=== PATIENT | male | born 1965 | race Caucasian/White ===

== ENCOUNTER 2023-11-23 09:23 | Outpatient (OUT) | payer OTHER, SELFPAY ==
[2023-11-23 11:12] LABS: Alanine Aminotransferase 37 U/L (16-63); Albumin Globulin Ratio 1.3; Albumin Level 3.9 g/dL (3.4-5.0); Alkaline Phosphatase 38 U/L (46-116); Anion Gap 13.8; Aspartate Amino Transferase 43 U/L (15-37); BUN Creatinine Ratio 8.9; Bilirubin Total 0.4 mg/dL (0.2-1.0); Calcium 9.2 mg/dL (8.5-10.1); Carbon Dioxide 24.9 mmol/L (21.0-32.0); Chloride 98 mmol/L (98-107); Chol HDL Ratio 1.7; Cholesterol 162 mg/dL (<=200); Estimated GFR (African America >60 (>=60); Estimated GFR (Non-African Ame >60 (>=60); Glucose 78 mg/dL (74-106); HDL Cholesterol 94 mg/dL (40-60); Potassium 3.7 mmol/L (3.5-5.1); Sodium 133 mmol/L (136-145); Total Protein 6.9 g/dL (6.4-8.2); Triglycerides 50 mg/dL (<=150)
== END 2023-11-23 09:24 | disposition home or self-care (01) ==
LOC: LAB 09:28
PROVIDERS: PCP Family Medicine; Visit Provider Family Medicine
DX: E78.2 Mixed hyperlipidemia (principal); I12.9 Hypertensive chronic kidney disease with stage 1 through stage 4 chronic kidney disease, or unspecified chronic kidney disease; N18.2 Chronic kidney disease, stage 2 (mild)
CPT/HCPCS: 36415; 80053; 80061

== ENCOUNTER 2023-11-23 09:33 | Outpatient (OUT) | payer OTHER, SELFPAY ==
[2023-11-23 10:11] LABS: Erythrocyte Sedimentation Rate 3 mm/hr (<=20)
[2023-11-23 11:22] LABS: Thyroid Stimulating Hormone 1.387 uIU/mL (0.358-3.740)
[2023-11-23 12:13] LABS: Estimated Average Glucose 85 mg/dL; Glycohemoglobin A1C 4.6 % (4.5-6.2)
[2023-11-23 13:35] LABS: Creatine Kinase 432 U/L (39-308)
[2023-11-24 12:10] LABS: Antinuclear Antibodies, IFA Negative (.)
[2023-11-24 13:09] LABS: t-Transglutaminase (tTG) IgA <2 U/mL (0-3)
[2023-11-26 12:09] LABS: Vitamin B1 (Thiamine), Blood 127.7 nmol/L (66.5-200.0)
== END 2023-11-23 09:34 | disposition home or self-care (01) ==
LOC: LAB 09:35
PROVIDERS: PCP Family Medicine
DX: E78.2 Mixed hyperlipidemia (principal); I12.9 Hypertensive chronic kidney disease with stage 1 through stage 4 chronic kidney disease, or unspecified chronic kidney disease; N18.2 Chronic kidney disease, stage 2 (mild); G62.9 Polyneuropathy, unspecified; M79.642 Pain in left hand
CPT/HCPCS: 36415; 80053; 80061; 82175; 82300; 82550; 82607; 82746; 83036; 83655; 83825; 83921; 84425; 84443; 85652; 86038; 86364

== ENCOUNTER 2024-09-01 10:08 | Outpatient (OUT) | payer OTHER, SELFPAY ==
--- OUTSIDE RECORDS SUMMARY | 2024-08-16 15:55 | XMS_ITS ---
Author Name Auto Generated Organization OHIP Support Name Relationship Address Phone SANTOS, JUANA Next of Kin Unknown + SANTOS, JUANA Next of Kin Unknown + SANTOS, JUANA Next of Kin Unknown + SANTOS, BLANCHE Next of Kin Unknown [phone] SANTOS, BLANCHE Next of Kin Unknown [phone] SANTOS, BLANCHE Next of Kin Unknown [phone] SANTOS, BLANCHE Next of Kin Unknown [phone] SANTOS, BLANCHE Next of Kin Unknown [phone] SANTOS, BLANCHE Next of Kin Unknown [phone] SANTOS, LBANCHE Next of Kin Unknown [phone] SANTOS, BLANCHE Next of Kin Unknown [phone] SANTOS, JUANA Next of Kin Unknown + SANTOS, BLANCHE Next of Kin Unknown [phone] SANTOS, BLANCHE Next of Kin Unknown [phone] SANTOS, BLANCHE Next of Kin Unknown [phone] SANTOS, JUANA Next of Kin Unknown + SANTOS, BLANCHE Next of Kin Unknown [phone] SANTOS, JUANA Next of Kin Unknown + SANTOS, BLANCHE Next of Kin Unknown [phone] SANTOS, BLANCHE Next of Kin Unknown [phone] SANTOS, BLANCHE Next of Kin Unknown [phone] SANTOS, BLANCHE Next of Kin Unknown [phone] SANTOS, JUANA Next of Kin Unknown + SANTOS, BLANCHE Next of Kin Unknown [phone] SANTOS, JUANA Next of Kin Unknown + SANTOS, JUANA Next of Kin Unknown + SANTOS, BLANCHE Next of Kin Unknown [phone] SANTOS, JUANA Next of Kin Unknown + Care Team Providers Care Grocery Checker Name Role Phone MARYANN PANIAGUA Attending Unavailable JOSE, RASTAFARI Referring Unavailable WUESCHER, RASTAFARI Attending Unavailable WILSON, MANUEL Referring Unavailable WILSON, MANUEL Referring Unavailable MARIA EUGENIA DENISE Referring Unavailable KARRIE, YUE Attending Unavailable OVITT, MARYANN Attending Unavailable OVITT, MARYANN Attending Unavailable WILSON, MANUEL Attending Unavailable WILSON, MANUEL Admitting Unavailable WILSON, MANUEL Attending Unavailable KARRIE, YUE Admitting Unavailable KARRIE, YUE Attending Unavailable SANGEETAESDELMA, RASTAFARI Attending Unavailable JOSE, RASTAFARI Attending Unavailable MIR GARCIA Referring Unavailable SKIEMIR Attending Unavailable HEMEYER, MILADY Alba Attending Unavailable NIELSONYOGESH STOVER Attending Unavailable NIELSONYOGESH STOVER Referring Unavailable BÁRBARA BECKER Attending Unavailable KIAYER, MILADY Alba Attending Unavailable HEMEYER, MILADY Alba Attending Unavailable NIELSONYOGESH T Attending Unavailable NIELSONYOGESH Attending Unavailable NIELSONYOGESH T Referring Unavailable BLANCA, MILADY Alba Attending Unavailable PROBLEMS DATE TYPE CONDITION / CODE ATTENDING STATUS [facility] 06/21/2024 Admitting Diagnosis Post-op / 483() MARYANN PANIAGUA Active [facility] 06/12/2024 Admitting Diagnosis Follow-up / [id number]() MARYANN PANIAGUA Active [facility] 05/25/2024 Admitting Diagnosis Pre-op Exam / [id number]() MARYANN PANIAGUA Active [facility] 03/17/2024 Admitting Diagnosis Unspecified hemorrhoids / K64.9(ICD-10) YUE YOON Active [facility] 03/17/2024 Admitting Diagnosis Hemorrhoids / [id number]() YUE YOON Active [facility] 03/06/2024 Admitting Diagnosis Muscle weakness (generalized) / M62.81(ICD-10) NICOLE MUHAMMAD Active [facility] 03/06/2024 Admitting Diagnosis Neuralgia and neuritis, unspecified / M79.2(ICD-10) NICOLE MUHAMMAD Active [facility] 03/01/2024 Admitting Diagnosis Other general symptoms and signs / R68.89(ICD-10) MANUEL WILSON Active [facility] 03/01/2024 Admitting Diagnosis Muscle wasting and atrophy, not elsewhere classified, left hand / M62.542(ICD-10) MANUEL WILSON Active [facility] 03/01/2024 Admitting Diagnosis Weakness / R53.1(ICD-10) MANUEL WILSON Active [facility] 02/14/2024 Admitting Diagnosis Cervicalgia / M54.2(ICD-10) WILTON Active [facility] 11/22/2023 Admitting Diagnosis Polyneuropathy, unspecified / G62.9(ICD-10) JOSE RASTAFARI Active [facility] 11/22/2023 Admitting Diagnosis Pain in left hand / M79.642(ICD-10) NICOLE MUHAMMAD Active [facility] PROCEDURES No Procedure Records Found RESULTS 36 Observed: 06/30/2024 5:41 PM Status: COMPLETED Source: [facility] Hi. Just wanted to make sure you saw the path from his muscle biopsy. I am not sure where you want or need this to go from here. Please call him. Thank you. TELEPHONE Observed: 06/30/2024 12:00 AM Status: COMPLETED Source: [facility] [id number] Manuela Graham 08/1965 Date Provider Department Center 06/30/2024 MARYANN KUMAR [facility] None Family History Problem Relation Age of Onset Cancer Mother Heart disease Father Hypertension Father Cancer Mother's Brother Family Status - Relation Status Age at Mother Father Mother's Brother OFFICE VISIT Observed: 06/21/2024 3:15 PM Status: COMPLETED Source: [facility] [id number] Manuela Graham 08/1965 Date Provider Department Center 06/21/2024 MARYANN KUMAR [facility] SURG [place] Family History Problem Relation Age of Onset Cancer Mother Heart disease Father Hypertension Father Cancer Mother's Brother Family Status - Relation Status Age at Mother Father Mother's Brother Level of Service:74852 DC POSTOP FOLLOW UP VISIT RELATED TO ORIGINAL PX Reason for Visit and Comments: Post-op [483] PROGRESS Observed: 06/21/2024 3:15 PM Status: COMPLETED Source: [facility] NEUROSURGERY NOTE SUBJECTIVE: Chief complaint: Postoperative visit for left calf muscle biopsy on 05/30/[address] Wilson. History of present illness: States that the bloody drainage she was having from incision last visit has since resolved. Denies tenderness, fever, chills. Ecchymosis left foot has resolved. Review of systems: As in HPI. Past Medical History: Diagnosis Date Arthritis Atrophy of muscle CTS (carpal tunnel syndrome) Hemorrhoids Hyperlipidemia Hypertension Spontaneous pneumothorax Past Surgical History: Procedure Laterality Date CARPAL TUNNEL RELEASE Left COLONOSCOPY ELBOW SURGERY Left 11/12/2022 LUNG SURGERY 07/2021 MUSCLE BIOPSY 05/30/2024 Dr. Wilson, left calf. ROTATOR CUFF REPAIR Left VASECTOMY Social History Tobacco Use Smoking status: Former Current packs/day: 0.00 Average packs/day: 0.3 packs/day for 25.8 years (6.5 ttl pk-yrs) Types: Cigarettes Start date: 1981 Quit date: 09/21/2009 Years since quittin.7 Smokeless tobacco: Never Vaping Use Vaping status: Never Used Substance Use Topics Alcohol use: Yes Alcohol/week: 8.0 standard drinks of alcohol Types: 8 Cans of beer per week Drug use: Not Currently Types: Marijuana Family History Problem Relation Name Age of Onset Cancer Mother Aislinn Joseph Heart disease Father Bin Graham Hypertension Father Bin Graham Cancer Mother's Brother Angel Joseph OBJECTIVE: Medications: albuterol amLODIPine buPROPion XL losartan multivitamin sildenafil Current Outpatient Medications: albuterol 90 mcg/actuation inhaler, if needed., Disp: , Rfl: amLODIPine (Norvasc) 10 mg tablet, Take 10 mg by mouth in the morning., Disp: , Rfl: buPROPion XL (Wellbutrin XL) 150 mg 24 hr tablet, Take 150 mg by mouth in the morning. Do not crush, chew, or split., Disp: , Rfl: losartan (Cozaar) 100 mg tablet, Take 100 mg by mouth in the morning., Disp: , Rfl: multivitamin tablet, Take 1 tablet by mouth in the morning., Disp: , Rfl: sildenafil (Viagra) 100 mg tablet, Take 100 mg by mouth if needed., Disp: , Rfl: Allergies: Allergies Allergen Reactions Penicillins Hives FACIAL SWELLING WHEN A CHILD DANDY DODD STUNG BY A WASP AT THE SAME TIME Exam: Exam performed and reviewed, changes as below. Vitals reviewed: Temp: [36.7 ???C (98 ???F)] 36.7 ???C (98 ???F) Heart Rate: [82] 82 BP: (137)/(77) 137/77 No intake/output data recorded. No intake/output data recorded. Exam reviewed and updated. Constitutional: In no apparent distress. Chest: Chest expansion symmetrical. Respirations regular and nonlabored. Extremities without edema. Skin warm and dry without pallor. Left posterior calf wound well-approximated without erythema or active drainage. 1 remaining Steri-Strips removed. Moderate edema. Sensation: Intact to light touch L2-S1 dermatomes bilaterally. Musculoskeletal: Hip flexors 5/5 bilaterally. Knee flexors and extensors 5/5 bilaterally. Ankle dorsal flexors 5/5 bilaterally. Ankle plantar flexors 5/5 bilaterally. Muscle tone without hyper or hypotonicity. Ambulatory without a device with steady gait. Labs: Admission on 05/30/2024, Discharged on 05/30/2024 Component Date Value Ref Range Status Glucose POC 05/30/2024 93 70 - 105 mg/dL Final Hospital Outpatient Visit on 05/25/2024 Component Date Value Ref Range Status Ventricular Rate 05/25/2024 102 BPM Final Atrial Rate 05/25/2024 102 BPM Final DC Interval 05/25/2024 148 ms Final QRS DURATION 05/25/2024 74 ms Final QT Interval 05/25/2024 356 ms Final QTC CALCULATION(BAZETT) 05/25/2024 463 ms Final P [place] 05/25/2024 76 degrees Final R-[place] 05/25/2024 81 degrees Final T Wave [place] 05/25/2024 81 degrees Final Imaging: MR cervical spine w and wo contrast 02/14/2024 Narrative HISTORY: A 58-year-old male with the history of the neck pain. Abnormal precontrast MRI examination of the cervical spine. TECHNIQUE: Multiplanar and multisequence MRI examination of the cervical spine is performed without and with intravenous contrast administration. COMPARISON: Comparison is made with MRI examination of the cervical spine without contrast of 01/26/2024. FINDINGS: Vertebral heights are normal. There are diffuse and advanced disc degenerative changes in the cervical and upper thoracic spine. There is a heterogeneous marrow signal from degenerative arthritis. No acute bony pathology is seen. There is some heterogeneous enhancement in the mid and lower cervical vertebrae. Appearance is from degenerative arthritis. There is a small lesion in the T1 vertebral body which is likely to be a atypical hemangioma. No acute bony pathology seen. At C2-C3, there is no evidence of disc herniation, spinal stenosis or narrowing of the neural foramina. At C3-C4, there is no evidence of disc herniation, spinal stenosis or narrowing of the neural foramina. At C4-C5, C5-C6 and C6-C7, there are disc degenerative changes with various degrees of spinal stenosis or narrowing of the neural foramina. At C7-T1, there is a minimal disc bulge. No evidence of spinal stenosis or narrowing of the neural foramina. No signal abnormality seen within the substance of the spinal cord to suggest cord edema or myelomalacia. No evidence of abnormal enhancing pathology is seen in the spinal canal or within the substance of the spinal cord. Impression *Severe disc degenerative disease in the cervical and upper thoracic spine. *There is a probable atypical hemangioma in the T1 vertebral body. No evidence of malignancy or metastasis. *Various degrees of spinal stenosis or narrowing of the neural foramina as described about. *No evidence of cord edema, contusion or abnormal enhancing pathology in the spinal canal. Electronically signed: Ian Schroeder. MR cervical spine wo contrast 01/26/2024 Narrative MR CERVICAL SPINE WO CONTRAST 01/26/2024 3:30 PM INDICATION: Neuropathic pain COMPARISON: None TECHNIQUE: Multiplanar multisequence MR images of the cervical spine without contrast were obtained. FINDINGS: NUMBERING/ALIGNMENT: There are 7 cervical type vertebrae. There is approximately 2 mm retrolisthesis of C3 on C4, C4 on C5, C5 on C6, and C6 on C7. Approximately 2 mm of anterolisthesis of C7 on T1. Facet alignment is grossly appropriate. Vertebral body heights are well-maintained. BONE MARROW: Bone marrow signal is heterogeneous throughout. There are degenerative endplate changes, some small cystic areas. Indeterminate focal STIR bright T2 dark lesion of the T1 vertebral body posterior centrally. Focal STIR bright lesion of the C5 vertebrae with intermediate T1 signal, possibly degenerative in nature or hemangioma, technically indeterminate. SPINAL CORD: Spinal cord signal and morphology is normal. Mild anterior T2 bright epidural material along the thecal sac, which contributes to mild thecal sac effacement. HEAD: Moderate burden is sinus mucosal thickening with suggestion of some polypoid lesions within the maxillary sinus. SOFT TISSUES: Questionable tiny areas of prevertebral edema versus artifact of the C4 and C5 levels. T2 bright areas of the palatine tonsils, possibly mucus retention cysts. Prominent left greater than right level 2 lymph nodes. DEGENERATIVE FINDINGS: Moderate severe degenerative disc disease throughout. Craniocervical junction: Normal alignment at the craniocervical junction without narrowing at the foramen magnum and at C1-C2. Moderate degenerative changes of the dens. C2-C3: No disc osteophyte complex eccentric to the left and mild facet degeneration. There is minimal neural foraminal narrowing. C3-C4: Mild disc osteophyte complex and uncovertebral joint hypertrophy. There is mild facet degeneration. There is minimal ligamentum flavum hypertrophy. There is minimal lateral neural foraminal narrowing. C4-C5: Mild to moderate disc osteophyte complex and uncovertebral joint hypertrophy. There is mild facet degeneration. There is mild ligamentum flavum hypertrophy. There is mild to moderate spinal canal stenosis. There is moderate bilateral neural foraminal narrowing. C5-C6: Moderate disc osteophyte complex and uncovertebral joint hypertrophy. There is mild facet degeneration. There is moderate ligament flavum hypertrophy. There is moderate spinal canal stenosis. There is moderate right and moderate severe left neural foraminal narrowing. C6-C7: Mild to moderate disc osteophyte complex and uncovertebral joint hypertrophy. There is mild ligament flavum hypertrophy. There is mild facet degeneration. There is mild to moderate spinal canal stenosis. There is mild bilateral neural foraminal narrowing. C7-T1: Mild disc osteophyte complex and moderate right greater than left facet degeneration. There is mild bilateral neural foraminal narrowing. Impression 1.Multilevel degenerative changes of the cervical spine as described, most prominent at C5-C6 where there is moderate spinal canal stenosis and moderate severe left neural foraminal narrowing. 2.Mild anterior T2 bright epidural material along the thecal sac, which contributes to thecal sac effacement, possibly due to prominent epidural venous plexus although not definite without contrast. Further evaluation with short-term follow-up cervical spine MRI with and without contrast recommended. 3.Indeterminate focal lesions of the T1 and C5 vertebral bodies as described. Attention on follow-up contrast-enhanced exam recommended. 4.T2 bright areas of the palatine tonsils, possibly mucus retention cysts and prominent left greater than right level 2 lymph nodes. Attention on follow-up recommended. Electronically signed: Castro Fernández MD. Impression: Weakness, primarily upper extremity, though does have EMG changes lower extremities as well, status post left calf muscle biopsy 05/30/[address] Wilson. Plan: Incisional drainage has since resolved. Incision appears to be healing well, though there is still some moderate edema. Did advise again that his surgical pathology report a muscle biopsy is not yet back. I did check with pathology this morning. Will call him once these results are received and will also inform PM&R, Dr. Muhammad. I think that from a neurosurgery standpoint, he can likely follow-up as needed if there are new or worsening problems. He notes that he did stop taking fenofibrate per recommendation of Dr. Wilson and Dr. Muhammad. This is currently being prescribed by PCP Dr. Yung. Patient reports he will inform Dr. Yung at next visit that he has stopped this medication in case alternative is needed. PROGRESS Observed: 06/12/2024 1:00 PM Status: COMPLETED Source: [facility] NEUROSURGERY NOTE SUBJECTIVE: Chief complaint: Postoperative visit for left calf muscle biopsy on 05/30/[address] Wilson. History of present illness: He notes that he has been having some bloody drainage from his incision since surgery. Does not seem to be getting much better. Notes that one of the Steri-Strips fell off 1 day after surgery. Applying Band-Aid and changing daily. Area is mildly tender. Denies fever or chills. He does note that also about a week after surgery, he noticed bruising of the dorsal surface of his left foot that did not seem to be present initially. He has resumed his normal activities and notes that he is quite active. Review of systems: As in HPI. Past Medical History: Diagnosis Date Arthritis Atrophy of muscle CTS (carpal tunnel syndrome) Hemorrhoids Hyperlipidemia Hypertension Spontaneous pneumothorax Past Surgical History: Procedure Laterality Date CARPAL TUNNEL RELEASE Left COLONOSCOPY ELBOW SURGERY Left 11/12/2022 LUNG SURGERY 07/2021 MUSCLE BIOPSY 05/30/2024 Dr. Wilson, left calf. ROTATOR CUFF REPAIR Left VASECTOMY Social History Tobacco Use Smoking status: Former Current packs/day: 0.00 Average packs/day: 0.3 packs/day for 25.8 years (6.5 ttl pk-yrs) Types: Cigarettes Start date: 1981 Quit date: 09/21/2009 Years since quittin.7 Smokeless tobacco: Never Vaping Use Vaping status: Never Used Substance Use Topics Alcohol use: Yes Alcohol/week: 8.0 standard drinks of alcohol Types: 8 Cans of beer per week Drug use: Not Currently Frequency: 7.0 times per week Types: Marijuana Comment: last time a week ago Family History Problem Relation Name Age of Onset Cancer Mother Aislinn Joseph Heart disease Father Bin Graham Hypertension Father Bin Graham Cancer Mother's Brother Angel Joseph OBJECTIVE: Medications: albuterol amLODIPine buPROPion XL fenofibrate micronized losartan multivitamin sildenafil Current Outpatient Medications: albuterol 90 mcg/actuation inhaler, if needed., Disp: , Rfl: amLODIPine (Norvasc) 10 mg tablet, Take 10 mg by mouth in the morning., Disp: , Rfl: buPROPion XL (Wellbutrin XL) 150 mg 24 hr tablet, Take 150 mg by mouth in the morning. Do not crush, chew, or split., Disp: , Rfl: losartan (Cozaar) 100 mg tablet, Take 100 mg by mouth in the morning., Disp: , Rfl: multivitamin tablet, Take 1 tablet by mouth in the morning., Disp: , Rfl: sildenafil (Viagra) 100 mg tablet, Take 100 mg by mouth if needed., Disp: , Rfl: fenofibrate micronized (Antara) 130 mg capsule, with breakfast., Disp: , Rfl: Allergies: Allergies Allergen Reactions Penicillins Hives FACIAL SWELLING WHEN A CHILD PBC,RNBSN STUNG BY A WASP AT THE SAME TIME Exam: Exam performed and reviewed, changes as below. Vitals reviewed: Heart Rate: [92] 92 BP: (132)/(65) 132/65 No intake/output data recorded. No intake/output data recorded. Exam reviewed and updated. Constitutional: In no apparent distress. Chest: Chest expansion symmetrical. Respirations regular and nonlabored. Extremities without edema. Skin warm and dry without pallor. Left dorsal toes and midfoot with fading ecchymosis. Left posterior calf wound well-approximated without erythema or active drainage. Small amount of old drainage on Band-Aid. Area surrounding the incision is somewhat firm to palpation and mildly tender. Few remaining Steri-Strips intact proximally. Sensation: Intact to light touch L2-S1 dermatomes bilaterally. Musculoskeletal: Hip flexors 5/5 bilaterally. Knee flexors and extensors 5/5 bilaterally. Ankle dorsal flexors 5/5 bilaterally. Ankle plantar flexors 5/5 bilaterally. Muscle tone without hyper or hypotonicity. Ambulatory without a device. Labs: Admission on 05/30/2024, Discharged on 05/30/2024 Component Date Value Ref Range Status Glucose POC 05/30/2024 93 70 - 105 mg/dL Final Hospital Outpatient Visit on 05/25/2024 Component Date Value Ref Range Status Ventricular Rate 05/25/2024 102 BPM Final Atrial Rate 05/25/2024 102 BPM Final DC Interval 05/25/2024 148 ms Final QRS DURATION 05/25/2024 74 ms Final QT Interval 05/25/2024 356 ms Final QTC CALCULATION([place]T) 05/25/2024 463 ms Final P [place] 05/25/2024 76 degrees Final R-[place] 05/25/2024 81 degrees Final T [place] 05/25/2024 81 degrees Final Imaging: MR cervical spine w and wo contrast 02/14/2024 Narrative HISTORY: A 58-year-old male with the history of the neck pain. Abnormal precontrast MRI examination of the cervical spine. TECHNIQUE: Multiplanar and multisequence MRI examination of the cervical spine is performed without and with intravenous contrast administration. COMPARISON: Comparison is made with MRI examination of the cervical spine without contrast of 01/26/2024. FINDINGS: Vertebral heights are normal. There are diffuse and advanced disc degenerative changes in the cervical and upper thoracic spine. There is a heterogeneous marrow signal from degenerative arthritis. No acute bony pathology is seen. There is some heterogeneous enhancement in the mid and lower cervical vertebrae. Appearance is from degenerative arthritis. There is a small lesion in the T1 vertebral body which is likely to be a atypical hemangioma. No acute bony pathology seen. At C2-C3, there is no evidence of disc herniation, spinal stenosis or narrowing of the neural foramina. At C3-C4, there is no evidence of disc herniation, spinal stenosis or narrowing of the neural foramina. At C4-C5, C5-C6 and C6-C7, there are disc degenerative changes with various degrees of spinal stenosis or narrowing of the neural foramina. At C7-T1, there is a minimal disc bulge. No evidence of spinal stenosis or narrowing of the neural foramina. No signal abnormality seen within the substance of the spinal cord to suggest cord edema or myelomalacia. No evidence of abnormal enhancing pathology is seen in the spinal canal or within the substance of the spinal cord. Impression *Severe disc degenerative disease in the cervical and upper thoracic spine. *There is a probable atypical hemangioma in the T1 vertebral body. No evidence of malignancy or metastasis. *Various degrees of spinal stenosis or narrowing of the neural foramina as described about. *No evidence of cord edema, contusion or abnormal enhancing pathology in the spinal canal. Electronically signed: Ian Schroeder. MR cervical spine wo contrast 01/26/2024 Narrative MR CERVICAL SPINE WO CONTRAST 01/26/2024 3:30 PM INDICATION: Neuropathic pain COMPARISON: None TECHNIQUE: Multiplanar multisequence MR images of the cervical spine without contrast were obtained. FINDINGS: NUMBERING/ALIGNMENT: There are 7 cervical type vertebrae. There is approximately 2 mm retrolisthesis of C3 on C4, C4 on C5, C5 on C6, and C6 on C7. Approximately 2 mm of anterolisthesis of C7 on T1. Facet alignment is grossly appropriate. Vertebral body heights are well-maintained. BONE MARROW: Bone marrow signal is heterogeneous throughout. There are degenerative endplate changes, some small cystic areas. Indeterminate focal STIR bright T2 dark lesion of the T1 vertebral body posterior centrally. Focal STIR bright lesion of the C5 vertebrae with intermediate T1 signal, possibly degenerative in nature or hemangioma, technically indeterminate. SPINAL CORD: Spinal cord signal and morphology is normal. Mild anterior T2 bright epidural material along the thecal sac, which contributes to mild thecal sac effacement. HEAD: Moderate burden is sinus mucosal thickening with suggestion of some polypoid lesions within the maxillary sinus. SOFT TISSUES: Questionable tiny areas of prevertebral edema versus artifact of the C4 and C5 levels. T2 bright areas of the palatine tonsils, possibly mucus retention cysts. Prominent left greater than right level 2 lymph nodes. DEGENERATIVE FINDINGS: Moderate severe degenerative disc disease throughout. Craniocervical junction: Normal alignment at the craniocervical junction without narrowing at the foramen magnum and at C1-C2. Moderate degenerative changes of the dens. C2-C3: No disc osteophyte complex eccentric to the left and mild facet degeneration. There is minimal neural foraminal narrowing. C3-C4: Mild disc osteophyte complex and uncovertebral joint hypertrophy. There is mild facet degeneration. There is minimal ligamentum flavum hypertrophy. There is minimal lateral neural foraminal narrowing. C4-C5: Mild to moderate disc osteophyte complex and uncovertebral joint hypertrophy. There is mild facet degeneration. There is mild ligamentum flavum hypertrophy. There is mild to moderate spinal canal stenosis. There is moderate bilateral neural foraminal narrowing. C5-C6: Moderate disc osteophyte complex and uncovertebral joint hypertrophy. There is mild facet degeneration. There is moderate ligament flavum hypertrophy. There is moderate spinal canal stenosis. There is moderate right and moderate severe left neural foraminal narrowing. C6-C7: Mild to moderate disc osteophyte complex and uncovertebral joint hypertrophy. There is mild ligament flavum hypertrophy. There is mild facet degeneration. There is mild to moderate spinal canal stenosis. There is mild bilateral neural foraminal narrowing. C7-T1: Mild disc osteophyte complex and moderate right greater than left facet degeneration. There is mild bilateral neural foraminal narrowing. Impression 1.Multilevel degenerative changes of the cervical spine as described, most prominent at C5-C6 where there is moderate spinal canal stenosis and moderate severe left neural foraminal narrowing. 2.Mild anterior T2 bright epidural material along the thecal sac, which contributes to thecal sac effacement, possibly due to prominent epidural venous plexus although not definite without contrast. Further evaluation with short-term follow-up cervical spine MRI with and without contrast recommended. 3.Indeterminate focal lesions of the T1 and C5 vertebral bodies as described. Attention on follow-up contrast-enhanced exam recommended. 4.T2 bright areas of the palatine tonsils, possibly mucus retention cysts and prominent left greater than right level 2 lymph nodes. Attention on follow-up recommended. Electronically signed: Castro Fernández MD. Impression: Weakness, primarily upper extremity, though does have EMG changes lower extremities as well, status post left calf muscle biopsy 05/30/[address] Wilson. Plan: I do not appreciate any signs or symptoms of infection. There is some tenderness around the incisional site as well as a small amount of old bloody drainage. I think that he may have a postoperative seroma or small hematoma. I think that this will likely improve with time. I would like for him to avoid Band-Aids as these can sometimes trap moisture. I would suggest allowing the Steri-Strips to fall off on their own. Change the gauze dressing daily and as needed when wet or dirty. Did advise that his surgical pathology report a muscle biopsy is not yet back. I would still like to see him back on 06/21/2024 as scheduled for a wound check. I am happy to see him back sooner if there are new or worsening problems. OFFICE VISIT Observed: 06/12/2024 1:00 PM Status: COMPLETED Source: [facility] [id number] Manuela Graham 08/1965 M Date Provider Department Center 06/12/2024 MARYANN KUMAR [facility] SURG Second Fl Family History Problem Relation Age of Onset Cancer Mother Heart disease Father Hypertension Father Cancer Mother's Brother Family Status - Relation Status Age at Mother Father Mother's Brother Level of Service:[id number] DC POSTOP FOLLOW UP VISIT RELATED TO ORIGINAL PX Reason for Visit and Comments: Follow-up [168582] - Patient is here for a post op appt to check incision site for drainage. ANES Observed: 05/30/2024 8:43 AM Status: COMPLETED Source: [facility] Patient: Dannie Graham Procedure Summary Date: 05/30/24 Room / Location: [facility] OPERATING ROOM 03 / [facility] Operating Room Anesthesia Start: 733 Anesthesia Stop: 828 Procedure: MUSCLE BIOPSY, CALF (Left) Diagnosis: Muscle weakness (muscle weakness) Surgeons: Manuel Wilson MD Responsible Provider: Christiano Haprer MD Anesthesia Type: MAC ASA Status: 2 Anesthesia Type: MAC Vitals Value Taken Time BP 123/78 05/30/24 0837 Temp 36.5 05/30/24 0843 Pulse 75 05/30/24 0837 Resp 18 05/30/24 0837 SpO2 100 % 05/30/24 0837 Anesthesia Post Evaluation Patient location during evaluation: PACU Patient participation: complete - patient participated Level of consciousness: awake and alert Pain score: 1 Pain management: adequate Multimodal analgesia pain management approach Airway patency: patent Two or more strategies used to mitigate risk of obstructive sleep apnea Cardiovascular status: hemodynamically stable Respiratory status: acceptable, room air, spontaneous ventilation and nonlabored ventilation Hydration status: euvolemic Patient is hemodynamically stable and is able to be discharged from PACU per anesthesia protocol. No notable events documented. HISTOLOGY - TISSUE EXAM Collected: 05/30/2024 8:03 AM Status: UNK Source: [facility] Order Comment: Pre-op diagno sis: muscle weakness TYPE CODE TESTS RESULT OUT OF RANGE REFERENCE UNITS PATHOLOGY 1499 LAB AP CASE REPORT Result Comment: Surgical Pat hology Case: [id number] Authorizing Provider: Manuel Wilson MD Collected: 05/30/2024 0803 Ordering Location: [facility] Main Operating Room Received: 05/30/2024 0907 Pathologist: Sabrina Dumont MD Specimen: Leg, LEFT CALF MUSCLE BIOPSY PATHOLOGY 34 LAB AP REPORT FINAL DIAGNOSIS NARRATIVE Result Comment: SKELETAL MUS PATRICIO, LEFT CALF, BIOPSY: - MILD ACUTE AND CHRONIC NEUROGENIC ATROPHY. - ONE NECROTIC MYOFIBER. - SEE COMMENTS. OLOGY 29 LAB AP CLINICAL INFORMATION Result Comment: Post-Op Diag noses M62.81 - Muscle weakness [ICD-10-CM] PATHOLOGY 35 LAB AP DIAGNOSIS COMMENT Result Comment: 06-21-24: Thi s case was reviewed by Miriam Montero MD at [facility] (please see accompanying report). Please see diagnosis above. COMMENT: The etiology of this denervation is unclear. The differential diagnosis of denervation would include but is not limited to motor neuron diseases, plexitis, radiculopathy, complications of diabetes, acute neuropathies, muscle trauma or critical illness polyneuropathy. In addition, a necrotic myofiber of unknown significance is present. Clinical correlation is required. PATHOLOGY [id number] LAB AP GROSS DESCRIPTION A. Leg. Result Comment: Received on 06/01/2024 is tissue designated as left calf muscle. The tissue is received fresh at [facility]. It measures 1.1 x 0.4 x 0.2 cm (FRESH), 1.1 x 0.4 x 0.2 cm(LM), 0.8 x 0.3 x 0.2 cm(EM) and is divided into four portions. Two portions are submitted for histochemical staining (frozen), one portion for light microscopy (formalin fixative), and one portion is retained for possible electron microscopy (glutaraldehyde fixative). PATHOLOGY 2848 LAB AP ELECTRON MICROSCOPY Result Comment: SPECIMEN: [facility] CALF MUSCLE Stains: Paraffin sections: H+E, thioflavin-S. Cryosections: H+E, modified Gomori trichrome, PAS, NADH-TR, ATPase pH 4.6 and 9.4, modified SDH, Oil-Red-O, non-specific esterase, encajildzi-H-aictliu,myophosphorylase, alkaline phosphatase, acid phosphatase. Tissue quality: Adequate Myofiber size: There is variation in muscle fiber size with atrophy seen in the specimen. There is no grouped atrophy present. Myofiber type: Fiber type grouping is identified. No fiber type disproportion is present. Myonuclei: Significant numbers of internal nuclei are not seen. Myofibers changes: Target/targetoid structures: Not identified. Moth-eaten fibers: Not identified. Necrosis: One necrotic myofiber identified. Regeneration: Not identified. Rimmed vacuoles: Not identified. Blood vessels: Unremarkable. Inflammatory response: There is no inflammation present in the specimen. Interstitial tissue: Fibrosis is not seen in the muscle fascicles. Other: Non-specific esterase demonstrates small angulated fibers. The thioflavin-S stain for amyloid is negative. Jlvnacqugc-X-oedalnl/succinate dehydrogenase, myophosphorylase, acid phosphatase, alkaline phosphatase staining are normal. Increased amounts of glycogen are not seen with PAS staining. The Oil-Red-O shows normal lipid stores. Immunohistochemical staining is performed. CD3, CD8, and CD4 staining fails to highlight significant T lymphocytes. CD20 fails to highlights significant B lymphocytes. CD31 highlights vessels. CD 68 fails to highlight a significant population of macrophages within the endomysial connective tissue. PTDP43 is negative. C5b9 demonstrates scant abnormal capillary staining and is negative in muscle fibers. MHC1 expression is not significantly elevated. Performed By: #### [id number] # ### [facility] ([facility]) [address] [place] [address] OPNOTE Observed: 05/30/2024 7:34 AM Status: COMPLETED Source: [facility] MUSCLE BIOPSY, CALF (L) Oper ative Note Date: 05/30/2024 Location: [facility] OR Name: Manuela Pandey , : 1965, Diagnosis Pre-op Diagnosis * Muscle weakness [M62.81] Post-op Diagnosis * Muscle weakness [M62.81] Procedures * MUSCLE BIOPSY, CALF Left calf muscle biopsy x 2 Surgeons Primary: Manuel Wilson MD Procedure Summary Anesthesia: Moderate Sedation ASA: II Estimated Blood Loss: None Total IV Fluids: 500 mL Drains: * None in log * Specimens ID Source Type Tests Collected By Collected At Frozen? Priority Lab ID A Leg Tissue HISTOLOGY - TISSUE EXAM Manuel Wilson MD 05/30/24 0803 No [id number] Description: LEFT CALF MUSCLE BIOPSY Staff: Headhunter: Morris Paniagua RN Scrub Person: Carmen Aguilar CST Mill Stenciler: Tameka Caldwell RN Indications: Dannie Graham is an 58 y.o. male who is having surgery for muscle weakness. Procedure Details: The patient was seen in the preoperative area. The risks, benefits, complications, treatment options, non-operative alternatives, expected recovery and outcomes were discussed with the patient. The possibilities of reaction to medication, pulmonary aspiration, injury to surrounding structures, bleeding, recurrent infection, the need for additional procedures, failure to diagnose a condition, and creating a complication requiring transfusion or operation were discussed with the patient. The patient concurred with the proposed plan, giving informed consent. The site of surgery was properly noted/marked if necessary per policy. The patient has been actively warmed in preoperative area. Preoperative antibiotics have been ordered and given within 1 hours of incision. Venous thrombosis prophylaxis are not indicated. Findings: muscle biopsy x 2 on clamp - sent for pathology Complications: None; patient tolerated the procedure well. Disposition: PACU - hemodynamically stable. Condition: stable Manuel Wilson Service: Neurosurgery Attending: MANUEL WILSON MD Date: 05/30/24 Preop diagnosis: Progressive muscle weakness Postoperative diagnosis: Same Procedure: left side muscle biopsy - calf muscle biopsy Anesthesia: deep sedation EBL: 1 ml Complications: none Condition: good Post-op disposition: Recovery room and then on to home Indication for procedure: Patient has progressive muscle weakness (with bad atrophy in his hands) - I was asked to consider muscle biopsy to help with patient's diagnosis. The patient voiced understanding of potential risks and benefits and wishes to proceed with the muscle biopsy. Operative report in detail: After obtaining written informed consent for the procedure the patient was brought to the operating room and placed on the operating table in the supine position. The patient was induced for anesthesia as appropriate for the procedure. The patient's arm was tucked at their side on the side ipsilateral to the planned biopsy. The line for incision for the left calf muscle biopsy was marked out. The area for surgery was prepped and draped in usual sterile fashion. Perioperative IV direct prophylactic therapy was given. The preoperative time-out completed. Local anesthetic was instilled at the proposed incision site. The incision was created with a 10 blade scalpel. The subcutaneous tissues were dissected with bovie cautery and with blunt dissection. The muscle fascia over the calf muscle muscle was exposed. A self-retaining retractor was inserted to maintain the view. The muscle fascia was opened and muscle fibers were identified. The muscle biopsy clamp was placed on the muscle fibers and the fibers were cut sharply with a metzenbaum scissors. The second clamp was used to take another specimen in the same fasion. Good surgical hemostasis was obtained. The muscle fascia was closed with a layer of 2-0 vicryl suture. The superficial layer of the wound was closed with 2 Vicryl suture in inverted interrupted fashion the subcu layer the skin. Final skin closure was with Dermabond and Steri-Strips. A sterile dressing was applied. The patient was aroused from anesthesia and then taken to the recovery room in stable condition. MANUEL WILSON MD was present for completed the entire procedure. At the end of the procedure all sponge, needle and instrument counts were correct. There were no immediate perioperative complications. MANUEL WILSON MD OPNOTE Observed: 05/30/2024 7:34 AM Status: COMPLETED Source: [facility] Date: 05/30/2024 Location: [facility] OR Name: Manuela Pandey , : 1965, Diagnosis Pre-op Diagnosis * Muscle weakness [M62.81] Post-op Diagnosis * Muscle weakness [M62.81] Procedures * MUSCLE BIOPSY, CALF Left calf muscle biopsy x 2 Surgeons Primary: Manuel Wilson MD Procedure Summary Anesthesia: Moderate Sedation ASA: II Estimated Blood Loss: None Total IV Fluids: 500 mL Drains: * None in log * Specimens ID Source Type Tests Collected By Collected At Frozen? Priority Lab ID A Leg Tissue HISTOLOGY - TISSUE EXAM Manuel Wilson MD 05/30/24 0803 No [id number] Description: LEFT CALF MUSCLE BIOPSY Staff: Headhunter: Morris Paniagua RN Scrub Person: Carmen Aguilar CST Mill Stenciler: Tameka Caldwell RN Indications: Dannie Graham is an 58 y.o. male who is having surgery for muscle weakness. Findings: muscle biopsy on clamp x 2 sent for pathology Complications: None; patient tolerated the procedure well. Disposition: PACU - hemodynamically stable. Condition: stable Specimens Collected: Order Name Source Comment Collection Info Order Time HISTOLOGY - TISSUE EXAM Leg Pre-op diagnosis: muscle weakness Collected By: Manuel Wilson MD 05/30/2024 8:08 AM Release to Patient Immediately Attending Attestation: I was present and scrubbed for the entire procedure. Manuel Wilson Observed: 05/30/2024 7:32 AM Status: COMPLETED Source: [facility] H&P reviewed. The patient wa s examined and there are no changes to the H&P. Plan left calf muscle biopsy. Consent already signed. Manuel Wilson MD ANES Observed: 05/30/2024 7:18 AM Status: COMPLETED Source: [facility] Attestation signed by Christiano Harper MD at 05/30/2024 7:19 PM I reviewed and agree with the above note. I spoke to and evaluated the patient myself and they are willing to proceed as planned. Christiano Harper MD Patient: Dannie Graham Procedure Information Date/Time: 05/30/24729 Procedure: MUSCLE BIOPSY, ANTERIOR THIGH (Left: Thigh - Leg Upper) Location: [facility] OPERATING ROOM 03 / [facility] Operating Room Surgeons: Manuel Wilson MD Reports no dysphagia or GERD Relevant Problems Cardio (+) HTN (hypertension) Musculoskeletal (+) Muscle weakness Clinical information reviewed: Tobacco Allergies Meds Med Hx Surg Hx Fam Hx Soc Hx Physical Exam Airway Mallampati: II TM distance: >3 FB Neck ROM: full Cardiovascular Rhythm: regular Rate: normal Dental - normal exam Pulmonary Breath sounds clear to auscultation Abdominal - normal exam Anesthesia Plan ASA 2 MAC (Discussed risks and benefits for anesthesia plan of MAC with standard ASA monitoring and back up plan to GETA if indicated. All questions answered. Patient verbally acknowledged understanding of risks and benefits. Patient agreeable to the plan and wishes to proceed. ) The patient is not a current smoker. Education provided regarding risk of obstructive sleep apnea. intravenous induction Postoperative administration of opioids is intended. Trial extubation is planned. Anesthetic plan and risks discussed with patient. Use of blood products discussed with patient who consented to blood products. Plan discussed with attending. Additional Equipment Requests POCT GLUCOSE METER UNSOLICIT ED RESULTS Collected: 05/30/2024 6:43 AM Status: UNK Source: [facility] Order Comment: Waived Testin g in the ED is performed under the ED CLIA certificate #[id number]. TYPE CODE TESTS RESULT OUT OF RANGE REFERENCE UNITS LAB 885 POCT GLUCOSE 93 70-105 mg/dL Result Comment: mschober Performed By: #### [id number] #### [facility] ([facility]) [address] [place] [address] PREP FOR PROCEDURE Observed: 05/26/2024 12:00 AM Status: COMPLETED Source: [facility] [id number] Manuela Graham 08/1965 M Date Provider Department Center 05/26/2024 [facility] PANIAG[facility] NEURO SURG None Family History Problem Relation Age of Onset Cancer Mother Heart disease Father Hypertension Father Cancer Mother's Brother Family Status - Relation Status Age at Mother Father Mother's Brother PROGRESS Observed: 05/25/2024 1:30 PM Status: COMPLETED Source: [facility] Neurosurgery Note Subjective: Manuela Graham is a 58 year old male with progressive muscle weakness and atrophy of bilateral hands presenting today for pre-operative appointment for left calf muscle biopsy, scheduled for 05/30/24. He was last seen on 03/01/24. He reports that his weakness is the same as his last appointment. Does not report any new symptoms or concerns, including numbness, tingling, imbalance, visual changes, or headaches. He does not have any concerns of weakness in his lower extremities. He does not have any dysarthria or trouble swallowing. Recent labs showed CK measured 03/06/24 was 438, increased from 322 measured 2 months prior. He reports taking fenofibrate. Past Medical History: Diagnosis Date Arthritis Atrophy of muscle CTS (carpal tunnel syndrome) Hemorrhoids Hyperlipidemia Hypertension Spontaneous pneumothorax Past Surgical History: Procedure Laterality Date CARPAL TUNNEL RELEASE Left COLONOSCOPY ELBOW SURGERY Left 11/12/2022 LUNG SURGERY 07/2021 ROTATOR CUFF REPAIR Left VASECTOMY Social History Tobacco Use Smoking status: Former Current packs/day: 0.00 Average packs/day: 0.3 packs/day for 25.8 years (6.5 ttl pk-yrs) Types: Cigarettes Start date: 1981 Quit date: 09/21/2009 Years since quittin.6 Smokeless tobacco: Never Vaping Use Vaping status: Never Used Substance Use Topics Alcohol use: Yes Alcohol/week: 8.0 standard drinks of alcohol Types: 8 Cans of beer per week Drug use: Not Currently Frequency: 7.0 times per week Types: Marijuana Comment: last time a week ago Family History Problem Relation Name Age of Onset Cancer Mother Aislinn Joseph Heart disease Father Bin Graham Hypertension Father Bin Graham Cancer Mother's Brother Angel Joseph OBJECTIVE: Medications: albuterol amLODIPine bisacodyl choline fenofibrate fenofibrate micronized losartan multivitamin sildenafil Current Outpatient Medications: albuterol 90 mcg/actuation inhaler, if needed., Disp: , Rfl: amLODIPine (Norvasc) 10 mg tablet, Take 10 mg by mouth in the morning., Disp: , Rfl: fenofibrate micronized (Antara) 130 mg capsule, with breakfast., Disp: , Rfl: losartan (Cozaar) 100 mg tablet, Take 100 mg by mouth in the morning., Disp: , Rfl: multivitamin tablet, Take 1 tablet by mouth in the morning., Disp: , Rfl: sildenafil (Viagra) 100 mg tablet, Take 100 mg by mouth if needed., Disp: , Rfl: bisacodyl (Dulcolax) 5 mg EC tablet, Take all 4 tablets together at 1pm the day prior to your colonoscopy., Disp: 4 tablet, Rfl: 0 choline fenofibrate (Trilipix) [address] capsule, Take 135 mg by mouth in the morning., Disp: , Rfl: Allergies: Allergies Allergen Reactions Penicillins Hives FACIAL SWELLING WHEN A CHILD PBC,RNBSN STUNG BY A WASP AT THE SAME TIME Exam: Exam performed and reviewed, changes as below. Vitals reviewed: Temp: [36.4 ???C (97.6 ???F)] 36.4 ???C (97.6 ???F) Heart Rate: [96] 96 BP: (131)/(77) 131/77 No intake/output data recorded. No intake/output data recorded. General: In no apparent distress. No dysarthria. Cardiovascular: Regular rate and rhythm. Chest: Respirations regular and unlabored. Chest expansion symmetrical. Extremities without edema. Neuro: Cranial nerves 2-12 intact. Pupils 2 mm and equal and reactive to light. Attention and memory grossly intact. Sensation: Intact to light touch in upper and lower extremities bilaterally. Musculoskeletal: Deltoid, triceps, biceps, finger flexors finger extensors 5/5 bilaterally. Hip flexors, knee flexors, knee extensors, dorsiflexion, and plantarflexion 5/5 bilaterally. Significant atrophy of hypothenar and thenar eminences bilaterally. Tone is appropriate. No fasciculations noted. Coordination: Finger to nose testing without dysmetria bilaterally. Labs: Admission on 05/02/2024, Discharged on 05/02/2024 Component Date Value Ref Range Status Glucose POC 05/02/2024 103 70 - 105 mg/dL Final Case Report 05/02/2024 Final Value:Surgical Pathology Case: [id number] Authorizing Provider: Yue Yoon MD Collected: 05/02/2024 0843 Ordering Location: [place] Received: 05/02/2024 [facility] Pathologist: Sabrina Dumont MD Specimen: Rectum, RECTAL BIOPSY Final Diagnosis 05/02/2024 Final Value:Colon, rectum, biopsy: - Tubular adenoma Clinical Information 05/02/2024 Final Value:Post-Op Diagnoses K64.9 - Hemorrhoids, unspecified hemorrhoid type [ICD-10-CM] Gross Description 05/02/2024 Final Value:A. Rectum. Received in formalin labeled Manuela Graham, RECTAL BIOPSY are two dark pink-burton 0.3 cm soft tissue bits. The specimens are entirely submitted in a single cassette. Sabrina Saeed, Pathologists' Musical Performer Microscopic Description 05/02/2024 Final Value:Microscopic examination performed. Imaging: MR cervical spine w and wo contrast 02/14/2024 Narrative HISTORY: A 58-year-old male with the history of the neck pain. Abnormal precontrast MRI examination of the cervical spine. TECHNIQUE: Multiplanar and multisequence MRI examination of the cervical spine is performed without and with intravenous contrast administration. COMPARISON: Comparison is made with MRI examination of the cervical spine without contrast of 01/26/2024. FINDINGS: Vertebral heights are normal. There are diffuse and advanced disc degenerative changes in the cervical and upper thoracic spine. There is a heterogeneous marrow signal from degenerative arthritis. No acute bony pathology is seen. There is some heterogeneous enhancement in the mid and lower cervical vertebrae. Appearance is from degenerative arthritis. There is a small lesion in the T1 vertebral body which is likely to be a atypical hemangioma. No acute bony pathology seen. At C2-C3, there is no evidence of disc herniation, spinal stenosis or narrowing of the neural foramina. At C3-C4, there is no evidence of disc herniation, spinal stenosis or narrowing of the neural foramina. At C4-C5, C5-C6 and C6-C7, there are disc degenerative changes with various degrees of spinal stenosis or narrowing of the neural foramina. At C7-T1, there is a minimal disc bulge. No evidence of spinal stenosis or narrowing of the neural foramina. No signal abnormality seen within the substance of the spinal cord to suggest cord edema or myelomalacia. No evidence of abnormal enhancing pathology is seen in the spinal canal or within the substance of the spinal cord. Impression *Severe disc degenerative disease in the cervical and upper thoracic spine. *There is a probable atypical hemangioma in the T1 vertebral body. No evidence of malignancy or metastasis. *Various degrees of spinal stenosis or narrowing of the neural foramina as described about. *No evidence of cord edema, contusion or abnormal enhancing pathology in the spinal canal. Electronically signed: Ian Schroeder. MR cervical spine wo contrast 01/26/2024 Narrative MR CERVICAL SPINE WO CONTRAST 01/26/2024 3:30 PM INDICATION: Neuropathic pain COMPARISON: None TECHNIQUE: Multiplanar multisequence MR images of the cervical spine without contrast were obtained. FINDINGS: NUMBERING/ALIGNMENT: There are 7 cervical type vertebrae. There is approximately 2 mm retrolisthesis of C3 on C4, C4 on C5, C5 on C6, and C6 on C7. Approximately 2 mm of anterolisthesis of C7 on T1. Facet alignment is grossly appropriate. Vertebral body heights are well-maintained. BONE MARROW: Bone marrow signal is heterogeneous throughout. There are degenerative endplate changes, some small cystic areas. Indeterminate focal STIR bright T2 dark lesion of the T1 vertebral body posterior centrally. Focal STIR bright lesion of the C5 vertebrae with intermediate T1 signal, possibly degenerative in nature or hemangioma, technically indeterminate. SPINAL CORD: Spinal cord signal and morphology is normal. Mild anterior T2 bright epidural material along the thecal sac, which contributes to mild thecal sac effacement. HEAD: Moderate burden is sinus mucosal thickening with suggestion of some polypoid lesions within the maxillary sinus. SOFT TISSUES: Questionable tiny areas of prevertebral edema versus artifact of the C4 and C5 levels. T2 bright areas of the palatine tonsils, possibly mucus retention cysts. Prominent left greater than right level 2 lymph nodes. DEGENERATIVE FINDINGS: Moderate severe degenerative disc disease throughout. Craniocervical junction: Normal alignment at the craniocervical junction without narrowing at the foramen magnum and at C1-C2. Moderate degenerative changes of the dens. C2-C3: No disc osteophyte complex eccentric to the left and mild facet degeneration. There is minimal neural foraminal narrowing. C3-C4: Mild disc osteophyte complex and uncovertebral joint hypertrophy. There is mild facet degeneration. There is minimal ligamentum flavum hypertrophy. There is minimal lateral neural foraminal narrowing. C4-C5: Mild to moderate disc osteophyte complex and uncovertebral joint hypertrophy. There is mild facet degeneration. There is mild ligamentum flavum hypertrophy. There is mild to moderate spinal canal stenosis. There is moderate bilateral neural foraminal narrowing. C5-C6: Moderate disc osteophyte complex and uncovertebral joint hypertrophy. There is mild facet degeneration. There is moderate ligament flavum hypertrophy. There is moderate spinal canal stenosis. There is moderate right and moderate severe left neural foraminal narrowing. C6-C7: Mild to moderate disc osteophyte complex and uncovertebral joint hypertrophy. There is mild ligament flavum hypertrophy. There is mild facet degeneration. There is mild to moderate spinal canal stenosis. There is mild bilateral neural foraminal narrowing. C7-T1: Mild disc osteophyte complex and moderate right greater than left facet degeneration. There is mild bilateral neural foraminal narrowing. Impression 1.Multilevel degenerative changes of the cervical spine as described, most prominent at C5-C6 where there is moderate spinal canal stenosis and moderate severe left neural foraminal narrowing. 2.Mild anterior T2 bright epidural material along the thecal sac, which contributes to thecal sac effacement, possibly due to prominent epidural venous plexus although not definite without contrast. Further evaluation with short-term follow-up cervical spine MRI with and without contrast recommended. 3.Indeterminate focal lesions of the T1 and C5 vertebral bodies as described. Attention on follow-up contrast-enhanced exam recommended. 4.T2 bright areas of the palatine tonsils, possibly mucus retention cysts and prominent left greater than right level 2 lymph nodes. Attention on follow-up recommended. Electronically signed: Castro Fernández MD. Assessment/Plan Manuela Graham is a 58 year old male with progressive muscle weakness and atrophy of bilateral hands presenting today for pre-operative appointment for left calf muscle biopsy, scheduled for 05/30/24. Prior EMG showed changes in left lower extremity; however, he does not report any lower extremity weakness. The procedure and postoperative care instructions were discussed, and all patient questions were addressed. - Complete pre-operative chest xray and EKG. - Contact office for any further questions about the procedure. Nadine Wolfe, MS3 05/25/24 Attending addenduj; Patient is known to me. H ehas muscle atrophy in the hands and has been referred for muscle biopsy. He was seen today in the pre-op clinic by Maryann Paniagua CNP and Nadine Wolfe MS3. Plan is for biopsy as already arranged kim bout a week. Manuel Wilson MD CONSULT Observed: 05/25/2024 1:30 PM Status: COMPLETED Source: [facility] [id number] Manuela Graham 08/1965 M Date Provider Department Center 05/25/2024 MARYANN KUMAR [facility] SURG [place] Family History Problem Relation Age of Onset Cancer Mother Heart disease Father Hypertension Father Cancer Mother's Brother Family Status - Relation Status Age at Mother Father Mother's Brother Level of Service:60598 DC OFFICE/OUTPATIENT ESTABLISHED MOD MDM 30 MIN Reason for Visit and Comments: Pre-op Exam [[id number]] - Patient is here for a pre op exam for muscle biopsy PROGRESS Observed: 05/25/2024 1:30 PM Status: COMPLETED Source: [facility] NEUROSURGERY NOTE SUBJECTIVE: Chief complaint: Preoperative visit for left calf muscle biopsy scheduled for 05/30/[address] Wilson. History of present illness: Has been having progressive weakness in his upper extremities that started about 4 to 5 years ago with his left hand. It became difficult to write his name and to hold onto things as well as for fine manipulation. He also noted atrophy of his hand muscles. 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 Does not really notice much change in legs or difficulty with balance. He notes that he had bilateral carpal tunnel release as well as ulnar nerve release without symptomatic improvement. Review of systems: As in HPI. Denies cough, chest pain, shortness of breath. Denies rashes, wounds, open sores. Past Medical History: Diagnosis Date Arthritis Atrophy of muscle CTS (carpal tunnel syndrome) Hemorrhoids Hyperlipidemia Hypertension Spontaneous pneumothorax Past Surgical History: Procedure Laterality Date CARPAL TUNNEL RELEASE Left COLONOSCOPY ELBOW SURGERY Left 11/12/2022 LUNG SURGERY 07/2021 ROTATOR CUFF REPAIR Left VASECTOMY Social History Tobacco Use Smoking status: Former Current packs/day: 0.00 Average packs/day: 0.3 packs/day for 25.8 years (6.5 ttl pk-yrs) Types: Cigarettes Start date: 1981 Quit date: 09/21/2009 Years since quittin.6 Smokeless tobacco: Never Vaping Use Vaping status: Never Used Substance Use Topics Alcohol use: Yes Alcohol/week: 8.0 standard drinks of alcohol Types: 8 Cans of beer per week Drug use: Not Currently Frequency: 7.0 times per week Types: Marijuana Comment: last time a week ago Family History Problem Relation Name Age of Onset Cancer Mother Aislinn Joseph Heart disease Father Bin Graham Hypertension Father Bin Graham Cancer Mother's Brother Angel Joseph OBJECTIVE: Medications: albuterol amLODIPine choline fenofibrate fenofibrate micronized losartan multivitamin sildenafil Current Outpatient Medications: albuterol 90 mcg/actuation inhaler, if needed., Disp: , Rfl: amLODIPine (Norvasc) 10 mg tablet, Take 10 mg by mouth in the morning., Disp: , Rfl: fenofibrate micronized (Antara) 130 mg capsule, with breakfast., Disp: , Rfl: losartan (Cozaar) 100 mg tablet, Take 100 mg by mouth in the morning., Disp: , Rfl: multivitamin tablet, Take 1 tablet by mouth in the morning., Disp: , Rfl: sildenafil (Viagra) 100 mg tablet, Take 100 mg by mouth if needed., Disp: , Rfl: choline fenofibrate (Trilipix) [address] capsule, Take 135 mg by mouth in the morning., Disp: , Rfl: Allergies: Allergies Allergen Reactions Penicillins Hives FACIAL SWELLING WHEN A CHILD PBC,RNBSN STUNG BY A WASP AT THE SAME TIME Exam: Exam performed and reviewed, changes as below. Vitals reviewed: No intake/output data recorded. No intake/output data recorded. Constitutional: In no apparent distress. Cardiovascular: Heart sounds regular rate and rhythm without appreciable murmur. Chest: Lung sounds clear to auscultation bilaterally. Respirations regular and nonlabored. Extremities without edema. Skin warm and dry without pallor. Neuro: GCS 15/15. Attention and memory intact. No dysarthria or aphasia. Cranial Nerves: Conjugate gaze. PERRLA. EOMI. No nystagmus. Facial sensation intact V1, V2, V3 bilaterally. Facial expression symmetrical bilaterally. Hearing intact to conversation. Uvula and palate elevates symmetrically. Trapezii symmetrical bilaterally. Tongue midline. Coordination: Finger to nose testing without dysmetria bilaterally. Sensation: Intact to light touch C5-T1 and L2-S1 dermatomes bilaterally. Musculoskeletal: Deltoid 5/5 bilaterally. Triceps 5/5 bilaterally. Biceps 5/5 bilaterally. Finger flexors 5/5 bilaterally. Finger extensors 5/5 bilaterally. Hip flexors 5/5 bilaterally. Knee flexors and extensors 5/5 bilaterally. Ankle dorsal flexors 5/5 bilaterally. Ankle plantar flexors 5/5 bilaterally. Muscle tone without hyper or hypotonicity. Substantial thenar and hypothenar atrophy bilaterally. Ambulatory without a device. Labs: Hospital Outpatient Visit on 05/25/2024 Component Date Value Ref Range Status Ventricular Rate 05/25/2024 102 BPM Final Atrial Rate 05/25/2024 102 BPM Final DC Interval 05/25/2024 148 ms Final QRS DURATION 05/25/2024 74 ms Final QT Interval 05/25/2024 356 ms Final QTC CALCULATION(BAZETT) 05/25/2024 463 ms Final P [place] 05/25/2024 76 degrees Final R-[place] 05/25/2024 81 degrees Final T [place] 05/25/2024 81 degrees Final Admission on 05/02/2024, Discharged on 05/02/2024 Component Date Value Ref Range Status Glucose POC 05/02/2024 103 70 - 105 mg/dL Final Case Report 05/02/2024 Final Value:Surgical Pathology Case: [id number] Authorizing Provider: Yue Yoon MD Collected: 05/02/2024 0843 Ordering Location: [facility] Received: 05/02/2024 [facility] Pathologist: Sabrina Dumont MD Specimen: Rectum, RECTAL BIOPSY Final Diagnosis 05/02/2024 Final Value:Colon, rectum, biopsy: - Tubular adenoma Clinical Information 05/02/2024 Final Value:Post-Op Diagnoses K64.9 - Hemorrhoids, unspecified hemorrhoid type [ICD-10-CM] Gross Description 05/02/2024 Final Value:A. Rectum. Received in formalin labeled Manuela Nathaneil Graham, RECTAL BIOPSY are two dark pink-burton 0.3 cm soft tissue bits. The specimens are entirely submitted in a single cassette. Sabrina Saeed, Pathologists' Musical Performer Microscopic Description 05/02/2024 Final Value:Microscopic examination performed. Imaging: MR cervical spine w and wo contrast 02/14/2024 Narrative HISTORY: A 58-year-old male with the history of the neck pain. Abnormal precontrast MRI examination of the cervical spine. TECHNIQUE: Multiplanar and multisequence MRI examination of the cervical spine is performed without and with intravenous contrast administration. COMPARISON: Comparison is made with MRI examination of the cervical spine without contrast of 01/26/2024. FINDINGS: Vertebral heights are normal. There are diffuse and advanced disc degenerative changes in the cervical and upper thoracic spine. There is a heterogeneous marrow signal from degenerative arthritis. No acute bony pathology is seen. There is some heterogeneous enhancement in the mid and lower cervical vertebrae. Appearance is from degenerative arthritis. There is a small lesion in the T1 vertebral body which is likely to be a atypical hemangioma. No acute bony pathology seen. At C2-C3, there is no evidence of disc herniation, spinal stenosis or narrowing of the neural foramina. At C3-C4, there is no evidence of disc herniation, spinal stenosis or narrowing of the neural foramina. At C4-C5, C5-C6 and C6-C7, there are disc degenerative changes with various degrees of spinal stenosis or narrowing of the neural foramina. At C7-T1, there is a minimal disc bulge. No evidence of spinal stenosis or narrowing of the neural foramina. No signal abnormality seen within the substance of the spinal cord to suggest cord edema or myelomalacia. No evidence of abnormal enhancing pathology is seen in the spinal canal or within the substance of the spinal cord. Impression *Severe disc degenerative disease in the cervical and upper thoracic spine. *There is a probable atypical hemangioma in the T1 vertebral body. No evidence of malignancy or metastasis. *Various degrees of spinal stenosis or narrowing of the neural foramina as described about. *No evidence of cord edema, contusion or abnormal enhancing pathology in the spinal canal. Electronically signed: Ian Schroeder. MR cervical spine wo contrast 01/26/2024 Narrative MR CERVICAL SPINE WO CONTRAST 01/26/2024 3:30 PM INDICATION: Neuropathic pain COMPARISON: None TECHNIQUE: Multiplanar multisequence MR images of the cervical spine without contrast were obtained. FINDINGS: NUMBERING/ALIGNMENT: There are 7 cervical type vertebrae. There is approximately 2 mm retrolisthesis of C3 on C4, C4 on C5, C5 on C6, and C6 on C7. Approximately 2 mm of anterolisthesis of C7 on T1. Facet alignment is grossly appropriate. Vertebral body heights are well-maintained. BONE MARROW: Bone marrow signal is heterogeneous throughout. There are degenerative endplate changes, some small cystic areas. Indeterminate focal STIR bright T2 dark lesion of the T1 vertebral body posterior centrally. Focal STIR bright lesion of the C5 vertebrae with intermediate T1 signal, possibly degenerative in nature or hemangioma, technically indeterminate. SPINAL CORD: Spinal cord signal and morphology is normal. Mild anterior T2 bright epidural material along the thecal sac, which contributes to mild thecal sac effacement. HEAD: Moderate burden is sinus mucosal thickening with suggestion of some polypoid lesions within the maxillary sinus. SOFT TISSUES: Questionable tiny areas of prevertebral edema versus artifact of the C4 and C5 levels. T2 bright areas of the palatine tonsils, possibly mucus retention cysts. Prominent left greater than right level 2 lymph nodes. DEGENERATIVE FINDINGS: Moderate severe degenerative disc disease throughout. Craniocervical junction: Normal alignment at the craniocervical junction without narrowing at the foramen magnum and at C1-C2. Moderate degenerative changes of the dens. C2-C3: No disc osteophyte complex eccentric to the left and mild facet degeneration. There is minimal neural foraminal narrowing. C3-C4: Mild disc osteophyte complex and uncovertebral joint hypertrophy. There is mild facet degeneration. There is minimal ligamentum flavum hypertrophy. There is minimal lateral neural foraminal narrowing. C4-C5: Mild to moderate disc osteophyte complex and uncovertebral joint hypertrophy. There is mild facet degeneration. There is mild ligamentum flavum hypertrophy. There is mild to moderate spinal canal stenosis. There is moderate bilateral neural foraminal narrowing. C5-C6: Moderate disc osteophyte complex and uncovertebral joint hypertrophy. There is mild facet degeneration. There is moderate ligament flavum hypertrophy. There is moderate spinal canal stenosis. There is moderate right and moderate severe left neural foraminal narrowing. C6-C7: Mild to moderate disc osteophyte complex and uncovertebral joint hypertrophy. There is mild ligament flavum hypertrophy. There is mild facet degeneration. There is mild to moderate spinal canal stenosis. There is mild bilateral neural foraminal narrowing. C7-T1: Mild disc osteophyte complex and moderate right greater than left facet degeneration. There is mild bilateral neural foraminal narrowing. Impression 1.Multilevel degenerative changes of the cervical spine as described, most prominent at C5-C6 where there is moderate spinal canal stenosis and moderate severe left neural foraminal narrowing. 2.Mild anterior T2 bright epidural material along the thecal sac, which contributes to thecal sac effacement, possibly due to prominent epidural venous plexus although not definite without contrast. Further evaluation with short-term follow-up cervical spine MRI with and without contrast recommended. 3.Indeterminate focal lesions of the T1 and C5 vertebral bodies as described. Attention on follow-up contrast-enhanced exam recommended. 4.T2 bright areas of the palatine tonsils, possibly mucus retention cysts and prominent left greater than right level 2 lymph nodes. Attention on follow-up recommended. Electronically signed: Castro Fernández MD. Impression: Weakness, primarily upper extremity, though does have EMG changes lower extremities as well. Plan: Per Dr. Wilson, plan for left calf muscle biopsy. 2. Surgical consent previously obtained by Dr. Wilson. 3. Reviewed surgery booklet in detail. 4. Discussed medications to stop prior to surgery and medications to take on day of surgery with sip of water. 5. NPO after midnight night before surgery. This includes candy, gum, mints, smoking, coffee, water. 6. May brush teeth on day of surgery but not to swallow large amounts of water. 7. Reviewed instructions for showering night before surgery at around 6 or 7 PM and use of chlorhexidine wipes 1 to 2 hours later as per provided instructions. 8. Avoid bar soap for 4 days prior to surgery. Use liquid body wash instead. 9. No shaving of any area of the body 2 days before surgery. 10. 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 12. He did have lab work recently-[facility], completed at [facility]. I do not think that he should need a CBC, type and screen, or MRSA/MSSA nasal swab for a muscle biopsy. Will obtain chest x-ray and EKG today. 13. All questions answered to patient's satisfaction. 14. Moderate risk of progressive neurosurgical decline given substantial atrophy. Return visit, stable. No imaging reviewed today. Moderate risk. Greater than 50% of visit on education. I spent [30] minutes of total time on the day of the visit. This time was spent preparing for the visit, obtaining and reviewing any outside history/data, history-taking, physical examination, counseling and education of patient and family regarding the diagnosis and plan of care, performing medical decision making, referring to and communicating with other health care providers, independently reviewing and interpreting imaging and other results, documentation in the EMR, and coordination of care. Please see the additional documentation in this note for specific details. HP Observed: 05/25/2024 1:30 PM Status: COMPLETED Source: [facility] NEUROSURGERY NOTE SUBJECTIVE: Chief complaint: Preoperative visit for left calf muscle biopsy scheduled for 05/30/[address] Wilson. History of present illness: Has been having progressive weakness in his upper extremities that started about 4 to 5 years ago with his left hand. It became difficult to write his name and to hold onto things as well as for fine manipulation. He also noted atrophy of his hand muscles. 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 Does not really notice much change in legs or difficulty with balance. He notes that he had bilateral carpal tunnel release as well as ulnar nerve release without symptomatic improvement. Review of systems: As in HPI. Denies cough, chest pain, shortness of breath. Denies rashes, wounds, open sores. Past Medical History: Diagnosis Date Arthritis Atrophy of muscle CTS (carpal tunnel syndrome) Hemorrhoids Hyperlipidemia Hypertension Spontaneous pneumothorax Past Surgical History: Procedure Laterality Date CARPAL TUNNEL RELEASE Left COLONOSCOPY ELBOW SURGERY Left 11/12/2022 LUNG SURGERY 07/2021 ROTATOR CUFF REPAIR Left VASECTOMY Social History Tobacco Use Smoking status: Former Current packs/day: 0.00 Average packs/day: 0.3 packs/day for 25.8 years (6.5 ttl pk-yrs) Types: Cigarettes Start date: 1981 Quit date: 09/21/2009 Years since quittin.6 Smokeless tobacco: Never Vaping Use Vaping status: Never Used Substance Use Topics Alcohol use: Yes Alcohol/week: 8.0 standard drinks of alcohol Types: 8 Cans of beer per week Drug use: Not Currently Frequency: 7.0 times per week Types: Marijuana Comment: last time a week ago Family History Problem Relation Name Age of Onset Cancer Mother Aislinn Joseph Heart disease Father Bin Graham Hypertension Father Bin Graham Cancer Mother's Brother Angel Joseph OBJECTIVE: Medications: albuterol amLODIPine choline fenofibrate fenofibrate micronized losartan multivitamin sildenafil Current Outpatient Medications: albuterol 90 mcg/actuation inhaler, if needed., Disp: , Rfl: amLODIPine (Norvasc) 10 mg tablet, Take 10 mg by mouth in the morning., Disp: , Rfl: fenofibrate micronized (Antara) 130 mg capsule, with breakfast., Disp: , Rfl: losartan (Cozaar) 100 mg tablet, Take 100 mg by mouth in the morning., Disp: , Rfl: multivitamin tablet, Take 1 tablet by mouth in the morning., Disp: , Rfl: sildenafil (Viagra) 100 mg tablet, Take 100 mg by mouth if needed., Disp: , Rfl: choline fenofibrate (Trilipix) [address] capsule, Take 135 mg by mouth in the morning., Disp: , Rfl: Allergies: Allergies Allergen Reactions Penicillins Hives FACIAL SWELLING WHEN A CHILD JIMENA DODDN STUNG BY A WASP AT THE SAME TIME Exam: Exam performed and reviewed, changes as below. Vitals reviewed: No intake/output data recorded. No intake/output data recorded. Constitutional: In no apparent distress. Cardiovascular: Heart sounds regular rate and rhythm without appreciable murmur. Chest: Lung sounds clear to auscultation bilaterally. Respirations regular and nonlabored. Extremities without edema. Skin warm and dry without pallor. Neuro: GCS 15/15. Attention and memory intact. No dysarthria or aphasia. Cranial Nerves: Conjugate gaze. PERRLA. EOMI. No nystagmus. Facial sensation intact V1, V2, V3 bilaterally. Facial expression symmetrical bilaterally. Hearing intact to conversation. Uvula and palate elevates symmetrically. Trapezii symmetrical bilaterally. Tongue midline. Coordination: Finger to nose testing without dysmetria bilaterally. Sensation: Intact to light touch C5-T1 and L2-S1 dermatomes bilaterally. Musculoskeletal: Deltoid 5/5 bilaterally. Triceps 5/5 bilaterally. Biceps 5/5 bilaterally. Finger flexors 5/5 bilaterally. Finger extensors 5/5 bilaterally. Hip flexors 5/5 bilaterally. Knee flexors and extensors 5/5 bilaterally. Ankle dorsal flexors 5/5 bilaterally. Ankle plantar flexors 5/5 bilaterally. Muscle tone without hyper or hypotonicity. Substantial thenar and hypothenar atrophy bilaterally. Ambulatory without a device. Labs: Hospital Outpatient Visit on 05/25/2024 Component Date Value Ref Range Status Ventricular Rate 05/25/2024 102 BPM Final Atrial Rate 05/25/2024 102 BPM Final DC Interval 05/25/2024 148 ms Final QRS DURATION 05/25/2024 74 ms Final QT Interval 05/25/2024 356 ms Final QTC CALCULATION([place]ETT) 05/25/2024 463 ms Final P [place] 05/25/2024 76 degrees Final R-[place] 05/25/2024 81 degrees Final T [place] 05/25/2024 81 degrees Final Admission on 05/02/2024, Discharged on 05/02/2024 Component Date Value Ref Range Status Glucose POC 05/02/2024 103 70 - 105 mg/dL Final Case Report 05/02/2024 Final Value:Surgical Pathology Case: [id number] Authorizing Provider: Yue Yoon MD Collected: 05/02/2024 0843 Ordering Location: [facility] Received: 05/02/2024 [facility] Pathologist: Sabrina Dumont MD Specimen: Rectum, RECTAL BIOPSY Final Diagnosis 05/02/2024 Final Value:Colon, rectum, biopsy: - Tubular adenoma Clinical Information 05/02/2024 Final Value:Post-Op Diagnoses K64.9 - Hemorrhoids, unspecified hemorrhoid type [ICD-10-CM] Gross Description 05/02/2024 Final Value:A. Rectum. Received in formalin labeled Manuela Graham, RECTAL BIOPSY are two dark pink-burton 0.3 cm soft tissue bits. The specimens are entirely submitted in a single cassette. Sabrina Saeed, Pathologists' Musical Performer Microscopic Description 05/02/2024 Final Value:Microscopic examination performed. Imaging: MR cervical spine w and wo contrast 02/14/2024 Narrative HISTORY: A 58-year-old male with the history of the neck pain. Abnormal precontrast MRI examination of the cervical spine. TECHNIQUE: Multiplanar and multisequence MRI examination of the cervical spine is performed without and with intravenous contrast administration. COMPARISON: Comparison is made with MRI examination of the cervical spine without contrast of 01/26/2024. FINDINGS: Vertebral heights are normal. There are diffuse and advanced disc degenerative changes in the cervical and upper thoracic spine. There is a heterogeneous marrow signal from degenerative arthritis. No acute bony pathology is seen. There is some heterogeneous enhancement in the mid and lower cervical vertebrae. Appearance is from degenerative arthritis. There is a small lesion in the T1 vertebral body which is likely to be a atypical hemangioma. No acute bony pathology seen. At C2-C3, there is no evidence of disc herniation, spinal stenosis or narrowing of the neural foramina. At C3-C4, there is no evidence of disc herniation, spinal stenosis or narrowing of the neural foramina. At C4-C5, C5-C6 and C6-C7, there are disc degenerative changes with various degrees of spinal stenosis or narrowing of the neural foramina. At C7-T1, there is a minimal disc bulge. No evidence of spinal stenosis or narrowing of the neural foramina. No signal abnormality seen within the substance of the spinal cord to suggest cord edema or myelomalacia. No evidence of abnormal enhancing pathology is seen in the spinal canal or within the substance of the spinal cord. Impression *Severe disc degenerative disease in the cervical and upper thoracic spine. *There is a probable atypical hemangioma in the T1 vertebral body. No evidence of malignancy or metastasis. *Various degrees of spinal stenosis or narrowing of the neural foramina as described about. *No evidence of cord edema, contusion or abnormal enhancing pathology in the spinal canal. Electronically signed: Ian Schroeder. MR cervical spine wo contrast 01/26/2024 Narrative MR CERVICAL SPINE WO CONTRAST 01/26/2024 3:30 PM INDICATION: Neuropathic pain COMPARISON: None TECHNIQUE: Multiplanar multisequence MR images of the cervical spine without contrast were obtained. FINDINGS: NUMBERING/ALIGNMENT: There are 7 cervical type vertebrae. There is approximately 2 mm retrolisthesis of C3 on C4, C4 on C5, C5 on C6, and C6 on C7. Approximately 2 mm of anterolisthesis of C7 on T1. Facet alignment is grossly appropriate. Vertebral body heights are well-maintained. BONE MARROW: Bone marrow signal is heterogeneous throughout. There are degenerative endplate changes, some small cystic areas. Indeterminate focal STIR bright T2 dark lesion of the T1 vertebral body posterior centrally. Focal STIR bright lesion of the C5 vertebrae with intermediate T1 signal, possibly degenerative in nature or hemangioma, technically indeterminate. SPINAL CORD: Spinal cord signal and morphology is normal. Mild anterior T2 bright epidural material along the thecal sac, which contributes to mild thecal sac effacement. HEAD: Moderate burden is sinus mucosal thickening with suggestion of some polypoid lesions within the maxillary sinus. SOFT TISSUES: Questionable tiny areas of prevertebral edema versus artifact of the C4 and C5 levels. T2 bright areas of the palatine tonsils, possibly mucus retention cysts. Prominent left greater than right level 2 lymph nodes. DEGENERATIVE FINDINGS: Moderate severe degenerative disc disease throughout. Craniocervical junction: Normal alignment at the craniocervical junction without narrowing at the foramen magnum and at C1-C2. Moderate degenerative changes of the dens. C2-C3: No disc osteophyte complex eccentric to the left and mild facet degeneration. There is minimal neural foraminal narrowing. C3-C4: Mild disc osteophyte complex and uncovertebral joint hypertrophy. There is mild facet degeneration. There is minimal ligamentum flavum hypertrophy. There is minimal lateral neural foraminal narrowing. C4-C5: Mild to moderate disc osteophyte complex and uncovertebral joint hypertrophy. There is mild facet degeneration. There is mild ligamentum flavum hypertrophy. There is mild to moderate spinal canal stenosis. There is moderate bilateral neural foraminal narrowing. C5-C6: Moderate disc osteophyte complex and uncovertebral joint hypertrophy. There is mild facet degeneration. There is moderate ligament flavum hypertrophy. There is moderate spinal canal stenosis. There is moderate right and moderate severe left neural foraminal narrowing. C6-C7: Mild to moderate disc osteophyte complex and uncovertebral joint hypertrophy. There is mild ligament flavum hypertrophy. There is mild facet degeneration. There is mild to moderate spinal canal stenosis. There is mild bilateral neural foraminal narrowing. C7-T1: Mild disc osteophyte complex and moderate right greater than left facet degeneration. There is mild bilateral neural foraminal narrowing. Impression 1.Multilevel degenerative changes of the cervical spine as described, most prominent at C5-C6 where there is moderate spinal canal stenosis and moderate severe left neural foraminal narrowing. 2.Mild anterior T2 bright epidural material along the thecal sac, which contributes to thecal sac effacement, possibly due to prominent epidural venous plexus although not definite without contrast. Further evaluation with short-term follow-up cervical spine MRI with and without contrast recommended. 3.Indeterminate focal lesions of the T1 and C5 vertebral bodies as described. Attention on follow-up contrast-enhanced exam recommended. 4.T2 bright areas of the palatine tonsils, possibly mucus retention cysts and prominent left greater than right level 2 lymph nodes. Attention on follow-up recommended. Electronically signed: Castro Fernández MD. Impression: Weakness, primarily upper extremity, though does have EMG changes lower extremities as well. Plan: Per Dr. Wilson, plan for left calf muscle biopsy. 2. Surgical consent previously obtained by Dr. Wilson. 3. Reviewed surgery booklet in detail. 4. Discussed medications to stop prior to surgery and medications to take on day of surgery with sip of water. 5. NPO after midnight night before surgery. This includes candy, gum, mints, smoking, coffee, water. 6. May brush teeth on day of surgery but not to swallow large amounts of water. 7. Reviewed instructions for showering night before surgery at around 6 or 7 PM and use of chlorhexidine wipes 1 to 2 hours later as per provided instructions. 8. Avoid bar soap for 4 days prior to surgery. Use liquid body wash instead. 9. No shaving of any area of the body 2 days before surgery. 10. 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 12. He did have lab work recently-[facility], completed at [facility]. I do not think that he should need a CBC, type and screen, or MRSA/MSSA nasal swab for a muscle biopsy. Will obtain chest x-ray and EKG today. 13. All questions answered to patient's satisfaction. 14. Moderate risk of progressive neurosurgical decline given substantial atrophy. Return visit, stable. No imaging reviewed today. Moderate risk. Greater than 50% of visit on education. I spent [30] minutes of total time on the day of the visit. This time was spent preparing for the visit, obtaining and reviewing any outside history/data, history-taking, physical examination, counseling and education of patient and family regarding the diagnosis and plan of care, performing medical decision making, referring to and communicating with other health care providers, independently reviewing and interpreting imaging and other results, documentation in the EMR, and coordination of care. Please see the additional documentation in this note for specific details. LIPID PANEL, STANDARD Collected: 05/24/2024 8:55 AM Status: F Source: [email or web address] Order Comment: FASTING:YES FASTING: YES TYPE CODE TESTS RESULT OUT OF RANGE REFERENCE UNITS LAB [id number] CHOLESTEROL, TOTAL 189 Normal <200 mg/dL LAB [id number] HDL CHOLESTEROL 103 Normal > OR = 40 mg/dL LAB [id number] TRIGLYCERIDES 48 Normal <150 mg/dL LAB [id number] LDL-CHOLESTEROL 72 Normal mg/dL (calc) Result Comment: Reference ra nge: <100 Desirable range <100 mg/dL for primary prevention; <70 mg/dL for patients with CHD or diabetic patients with > or = 2 CHD risk factors. LDL-C is now calculated using the Trish calculation, which is a validated novel method providing better accuracy than the Friedewald equation in the estimation of LDL-C. Mir GOLDBERG et al. YORDY. 2013;310(19): 9177-7757 (http://education.[employer] [facility] [employer] [facility]/faq/YJV722) LAB [id number] CHOL/HDLC RATIO 1.8 Normal <5.0 (calc) LAB [id number] NON HDL CHOLESTEROL 86 Normal <130 mg/dL (calc) Result Comment: For patients with diabetes plus 1 major ASCVD risk factor, treating to a non-HDL-C goal of <100 mg/dL (LDL-C of <70 mg/dL) is considered a therapeutic option. Performed By: #### [id number], 37 4 #### [employer] [facility] [address] [place] [address] Manager Shift: Laxmi Hughes #### 7600 #### [employer] [facility] [address] [facility], [address] [place] [address] Manager Shift: Sree Duffy MD COMPREHENSIVE METABOLIC PANEL Collected : 05/24/2024 8:55 AM Status: F Source: [email or web address] TYPE CODE TESTS RESULT OUT OF RANGE REFERENCE UNITS LAB [id number] GLUCOSE 81 Normal 65-99 mg/dL Result Comment: Fasting reference interval LAB [id number] UREA NITROGEN (BUN) 8 Normal 7-25 mg/dL LAB [id number] CREATININE 0.86 Normal 0.70-1.30 mg/dL LAB [id number] EGFR 100 Normal > OR = 60 mL/min/1 .73m2 LAB [id number] BUN/CREATININE RATIO SEE NOTE: 6-22 (calc) Result Comment: Not Reported : BUN and Creatinine are within reference range. LAB [id number] SODIUM 135 Normal 135-146 mmol/L LAB [id number] POTASSIUM 3.9 Normal 3.5-5.3 mmol/L LAB [id number] CHLORIDE 97 Low 98-110 mmol/L LAB [id number] CARBON DIOXIDE 28 Normal 20-32 mmol/L LAB [id number] CALCIUM 9.4 Normal 8.6-10.3 mg/dL LAB [id number] PROTEIN, TOTAL 6.8 Normal 6.1-8.1 g/dL LAB [id number] ALBUMIN 4.2 Normal 3.6-5.1 g/dL LAB [id number] GLOBULIN 2.6 Normal 1.9-3.7 g/dL (calc) LAB [id number] ALBUMIN/GLOBUL IN RATIO 1.6 Normal 1.0-2.5 (calc) LAB [id number] BILIRUBIN, TOTAL 0.5 Normal 0.2-1.2 mg/dL LAB [id number] ALKALINE PHOSPHATASE 59 Normal 35-144 U/L LAB [id number] AST 39 High 10-35 U/L LAB [id number] ALT 29 Normal 9-46 U/L Performed By: #### [id number], 37 4 #### [facility] [address] [place] [phone] Manager Shift: Laxmi Hughes #### 7600 #### [employer] [facility] [address], [address] [place], [place] [phone] Manager Shift: Sree Duffy MD CREATINE KINASE, TOTAL Collected: 05/24 8:55 AM Status: F Source: [email or web address] TYPE CODE TESTS RESULT OUT OF RANGE REFERENCE UNITS LAB [id number] CREATINE KINASE, TOTAL 334 High 23-325 U/L Performed By: #### [id number], 37 4 #### [facility] [address] [place] [phone] Manager Shift: Laxmi Hughes #### 7600 #### [employer] [address], [address] [place], [place] [phone] Manager Shift: Sree Duffy MD ANES Observed: 05/02/2024 2:05 PM Status: COMPLETED Source: [facility] Patient: Dannie Graham Procedure Information Anesthesia Start Date/Time: 05/02/24820 Procedure: COLONOSCOPY scope number 126 (Colon) Location: [facility] OR / [facility] OR Surgeons: Yue Yoon MD Relevant Problems Anesthesia (-) History of anesthesia complications Cardio (+) HTN (hypertension) (+) Hemorrhoids Pulmonary (+) Mild asthma Past Medical History: Diagnosis Date Arthritis Atrophy of muscle CTS (carpal tunnel syndrome) Hemorrhoids Hyperlipidemia Hypertension Spontaneous pneumothorax Past Surgical History: Procedure Laterality Date CARPAL TUNNEL RELEASE Left COLONOSCOPY ELBOW SURGERY Left 11/12/2022 LUNG SURGERY 07/2021 ROTATOR CUFF REPAIR Left VASECTOMY Social History Tobacco Use Smoking status: Former Current packs/day: 0.00 Average packs/day: 0.3 packs/day for 25.8 years (6.5 ttl pk-yrs) Types: Cigarettes Start date: 1981 Quit date: 09/21/2009 Years since quittin.6 Smokeless tobacco: Never Vaping Use Vaping status: Never Used Substance Use Topics Alcohol use: Yes Alcohol/week: 8.0 standard drinks of alcohol Types: 8 Cans of beer per week Drug use: Yes Frequency: 7.0 times per week Types: Marijuana Comment: last time a week ago Labs No results found for: WBC , HGB , HCT , PLT No results found for: NA , K , CO2 , CL , BUN , CREATININE , GLUCOSE , CALCIUM No results found for: PT , INR , PTT No echocardiogram results found for the past 12 months Clinical information reviewed: Tobacco Allergies Meds Med Hx Surg Hx Fam Hx Soc Hx Physical Exam Airway Mallampati: II TM distance: >3 FB Neck ROM: full Cardiovascular Rhythm: regular Rate: normal Dental Comments: Grossly unremarkable Pulmonary Breath sounds clear to auscultation Abdominal Anesthesia Plan ASA 2 MAC (Patient chart (PMH/PSH/Social/Meds/Allergies/etc) was reviewed prior to patient interview. Plan Monitored Anesthesia Care (MAC) with backup general anesthesia if needed. Specifically discussed the risks of oral/airway instrumentation (if needed) including (but not limited to) lip, gum, and teeth trauma. This has the potential to cause significant dental damage including tooth loss. Patient expressed understanding and wished to proceed. Patient was interviewed and evaluated prior to the start of the anesthetic. Note was inputted later.) intravenous induction Anesthetic plan and risks discussed with patient. Plan discussed with CAA. Additional Equipment Requests ANES Observed: 05/02/2024 2:04 PM Status: COMPLETED Source: [facility] Patient: Dannie Graham Procedure Summary Date: 05/02/24 Room / Location: [place] [address] / [facility] Anesthesia Start: 820 Anesthesia Stop: 848 Procedure: COLONOSCOPY scope number 126 (Colon) Diagnosis: Hemorrhoids, unspecified hemorrhoid type (Hemorrhoids, unspecified hemorrhoid type [K64.9]) Surgeons: Yue Yoon MD Responsible Provider: Christiano Harper MD Anesthesia Type: MAC ASA Status: Not recorded Anesthesia Type: MAC Vitals Value Taken Time BP 125/75 05/02/24 0920 Temp 37.3 ???C (99.1 ???F) 05/02/24 0855 Pulse 78 05/02/24 0920 Resp 16 05/02/24 0920 SpO2 05/02/24 1404 Anesthesia Post Evaluation Patient location during evaluation: PACU Patient participation: complete - patient participated Level of consciousness: awake Pain management: adequate Cardiovascular status: acceptable Respiratory status: acceptable Hydration status: acceptable Comments: Patient was evaluated for PACU discharge prior to leaving. Note was inputted later. Patient is hemodynamically stable and is able to be discharged from PACU per anesthesia protocol. No notable events documented. [id number] Observed: 05/02/2024 8:45 AM Status: COMPLETED Source: [facility] Patient: Dannie Graham Procedure Summary Date: 05/02/24 Room / Location: [facility] OR [address] [place] [address] OR Anesthesia Start: 820 Anesthesia Stop: Procedure: COLONOSCOPY scope number 126 (Colon) Diagnosis: Hemorrhoids, unspecified hemorrhoid type (Hemorrhoids, unspecified hemorrhoid type [K64.9]) Surgeons: Yue Yoon MD Responsible Provider: Christiano Harper MD Anesthesia Type: MAC ASA Status: Not recorded Anesthesia Post [facility] Patient Monitor: direct observation Transport: uneventful Patient condition is: stable HISTOLOGY - TISSUE EXAM Collected: 05/02/2024 8:43 AM Status: UNK Source: [facility] Order Comment: Pre-op diagno sis: Hemorrhoids, unspecified hemorrhoid type [K64.9] TYPE CODE TESTS RESULT OUT OF RANGE REFERENCE UNITS PATHOLOGY 1499 LAB AP CASE REPORT Result Comment: Surgical Pat hology Case: [id number] Authorizing Provider: Yue Yoon MD Collected: 05/02/2024 0843 Ordering Location: [facility] Received: 05/02/2024 1005 [facility] Pathologist: Sabrina Dumont MD Specimen: Rectum, RECTAL BIOPSY PATHOLOGY 34 LAB AP REPORT FINAL DIAGNOSIS NARRATIVE Result Comment: Colon, rectu m, biopsy: - Tubular adenoma OLOGY 29 LAB AP CLINICAL INFORMATION Result Comment: Post-Op Diag noses K64.9 - Hemorrhoids, unspecified hemorrhoid type [ICD-10-CM] PATHOLOGY [id number] LAB AP GROSS DESCRIPTION A. Rectum. Result Comment: Received in formalin labeled Manuela Graham, RECTAL BIOPSY are two dark pink-burton 0.3 cm soft tissue bits. The specimens are entirely submitted in a single cassette. Sabrina Saeed, Pathologists' Musical Performer PATHOLOGY 32 LAB AP MICROSCOPIC DESCRIPTION Microscopic examination performed. Performed By: #### [id number] # ### [facility] ([facility]) [address] [place] [address] Observed: 05/02/2024 8:22 AM Status: COMPLETED Source: [facility] Dannie Graham is a 58 y.o. mal e who presents for Hemorrhoids. Manuela Graham is a 58 y.o. male presenting today for evaluation of a rectal mass vs hemorrhoids. The patient has a history of internal hemorrhoids. These cause occasional bleeding, but not other symptoms. They are not bothersome to the patient. At a recent wellness visit, his PCP palpated a rectal mass that was larger than his other hemorrhoids and advised colorectal evaluation. The patient has no issues with constipation or diarrhea. His last colonoscopy was 8 years ago, and showed nothing of concern. Review of Systems Constitutional: Negative. HENT: Negative. Eyes: Negative. Respiratory: Negative. Cardiovascular: Negative. Gastrointestinal: Negative. Endocrine: Negative. Genitourinary: Negative. Musculoskeletal: Negative. Allergic/Immunologic: Negative. Neurological: Negative. Hematological: Negative. Psychiatric/Behavioral: Negative. Objective Visit Vitals BP 121/77 (BP Location: Right arm, Patient Position: Sitting) Pulse 77 Temp 36.7 ???C (98.1 ???F) (Temporal) Physical Exam Constitutional: Appearance: Normal appearance. HENT: Head: Normocephalic and atraumatic. Nose: Nose normal. Cardiovascular: Rate and Rhythm: Normal rate and regular rhythm. Pulmonary: Effort: Pulmonary effort is normal. Breath sounds: Normal breath sounds. Abdominal: General: Abdomen is flat. Palpations: Abdomen is soft. Genitourinary: Comments: Mass palpated inside the rectum. Mass was larger than his other hemorrhoids. Musculoskeletal: General: Normal range of motion. Skin: General: Skin is warm. Neurological: General: No focal deficit present. Mental Status: He is alert and oriented to person, place, and time. Psychiatric: Mood and Affect: Mood normal. Behavior: Behavior normal. Thought Content: Thought content normal. Judgment: Judgment normal. Assessment/Plan Manuela Graham is a 58 y.o. male presenting today for evaluation of a rectal mass found by PCP. The patient is not experiencing any symptoms or changes in bowel habits. Perform colonoscopy and excise rectal mass at this time. Diagnosis Plan 1. Hemorrhoids, unspecified hemorrhoid type Case Request Operating Room: COLONOSCOPY Case Request Operating Room: COLONOSCOPY Claudia French, MS-3 [facility] The above patient was seen with the medical student and the physical exam was done by myself with the student present, assisting and observing. The plan was discussed in detail with the student and the patien OPNOTE Observed: 05/02/2024 8:22 AM Status: COMPLETED Source: [facility] COLONOSCOPY scope number 126 Operative Note Date: 05/02/2024 Location: [facility] OR Name: Manuela Pandey , : 1965, Diagnosis Pre-op Diagnosis * Hemorrhoids, unspecified hemorrhoid type [K64.9] Post-op Diagnosis * Hemorrhoids, unspecified hemorrhoid type [K64.9] Procedures COLONOSCOPY scope number 126 40588 - DC COLONOSCOPY FLX DX W/COLLJ SPEC WHEN PFRMD Surgeons Primary: Yue Yoon MD Procedure Summary Anesthesia: Monitor Anesthesia Care ASA: ASA status not filed in the log. Estimated Blood Loss: None Total IV Fluids: 250 mL Drains: * None in log * Specimens ID Source Type Tests Collected By Collected At Frozen? Priority Lab ID A Rectum Tissue HISTOLOGY - TISSUE EXAM Yue Yoon MD 05/02/24 0843 No Description: RECTAL BIOPSY Comment: PLACED IN FORMALIN Staff: Headhunter: Janet Bowen RN Scrub Person: Allyson Tovar CST Indications: Dannie Graham is an 58 y.o. male who is having surgery for Hemorrhoids, unspecified hemorrhoid type [K64.9]. Procedure Details: The patient was seen in the preoperative area. The risks, benefits, complications, treatment options, non-operative alternatives, expected recovery and outcomes were discussed with the patient. The possibilities of reaction to medication, pulmonary aspiration, injury to surrounding structures, bleeding, recurrent infection, the need for additional procedures, failure to diagnose a condition, and creating a complication requiring transfusion or operation were discussed with the patient. The patient concurred with the proposed plan, giving informed consent. The site of surgery was properly noted/marked if necessary per policy. The patient has been actively warmed in preoperative area. Preoperative antibiotics are not indicated. Venous thrombosis prophylaxis are not indicated. Patient was brought into the operating room placed in left lateral decubitus position under MAC anesthesia. On direct visualization of the anal canal no masses or lesions on digital rectal exam no masses or lesions were palpated. On entrance to the scope patient noted to have a fair prep the cecum was reached without difficulty. The removal of the scope took greater than 6 minutes. On removal there noted to be a small hyperplastic appearing polyp that was removed with biopsy forceps. Patient tolerated procedure well taken to postanesthesia care unit in stable condition they should have a repeat colonoscopy in 5 years. Findings: rectal polyp Complications: None; patient tolerated the procedure well. Disposition: PACU - hemodynamically stable. Condition: stable Yue Yoon POCT GLUCOSE METER UNSOLICIT ED RESULTS Collected: 05/02/2024 7:00 AM Status: UNK Source: [facility] Order Comment: Waived Testin g in the ED is performed under the ED CLIA certificate #[id number]. TYPE CODE TESTS RESULT OUT OF RANGE REFERENCE UNITS LAB 885 POCT GLUCOSE 103 70-105 mg/dL Result Comment: dholas Performed By: #### [id number] #### [facility] ([facility]) [address] [place] [address] ORDERS ONLY Observed: 04/25/2024 12:00 AM Status: COMPLETED Source: [facility] [id number] Manuela Graham 08/1965 M Date Provider Department Center 04/25/2024 AYDEN CHAVEZ ONC [facility] Family History Problem Relation Age of Onset Cancer Mother Heart disease Father Hypertension Father Cancer Mother's Brother Family Status - Relation Status Age at Mother Father Mother's Brother CONSULT Observed: 03/17/2024 11:15 AM Status: COMPLETED Source: [facility] [id number] Manuela Graham 08/1965 M Date Provider Department Center 03/17/2024 YUE DIAZ [facility] SURG [place] Family History Problem Relation Age of Onset Cancer Mother Heart disease Father Hypertension Father Cancer Mother's Brother Family Status - Relation Status Age at Mother Father Mother's Brother Level of Service:27905 DC OFFICE/OUTPATIENT NEW LOW MDM 30 MINUTES Reason for Visit and Comments: Hemorrhoids [[id number]] PROGRESS Observed: 03/17/2024 11:15 AM Status: COMPLETED Source: [facility] Subjective Patient ID: Dannie Graham is a 58 y.o. male who presents for Hemorrhoids. Manuela Graham is a 58 y.o. male presenting today for evaluation of a rectal mass vs hemorrhoids. The patient has a history of internal hemorrhoids. These cause occasional bleeding, but not other symptoms. They are not bothersome to the patient. At a recent wellness visit, his PCP palpated a rectal mass that was larger than his other hemorrhoids and advised colorectal evaluation. The patient has no issues with constipation or diarrhea. His last colonoscopy was 8 years ago, and showed nothing of concern. Review of Systems Constitutional: Negative. HENT: Negative. Eyes: Negative. Respiratory: Negative. Cardiovascular: Negative. Gastrointestinal: Negative. Endocrine: Negative. Genitourinary: Negative. Musculoskeletal: Negative. Allergic/Immunologic: Negative. Neurological: Negative. Hematological: Negative. Psychiatric/Behavioral: Negative. Objective Visit Vitals BP 121/77 (BP Location: Right arm, Patient Position: Sitting) Pulse 77 Temp 36.7 ???C (98.1 ???F) (Temporal) Physical Exam Constitutional: Appearance: Normal appearance. HENT: Head: Normocephalic and atraumatic. Nose: Nose normal. Cardiovascular: Rate and Rhythm: Normal rate and regular rhythm. Pulmonary: Effort: Pulmonary effort is normal. Breath sounds: Normal breath sounds. Abdominal: General: Abdomen is flat. Palpations: Abdomen is soft. Genitourinary: Comments: Mass palpated inside the rectum. Mass was larger than his other hemorrhoids. Musculoskeletal: General: Normal range of motion. Skin: General: Skin is warm. Neurological: General: No focal deficit present. Mental Status: He is alert and oriented to person, place, and time. Psychiatric: Mood and Affect: Mood normal. Behavior: Behavior normal. Thought Content: Thought content normal. Judgment: Judgment normal. Assessment/Plan Manuela Graham is a 58 y.o. male presenting today for evaluation of a rectal mass found by PCP. The patient is not experiencing any symptoms or changes in bowel habits. Perform colonoscopy and excise rectal mass at this time. Diagnosis Plan 1. Hemorrhoids, unspecified hemorrhoid type Case Request Operating Room: COLONOSCOPY Case Request Operating Room: COLONOSCOPY Claudia French, MS-3 [facility] The above patient was seen with the medical student and the physical exam was done by myself with the student present, assisting and observing. The plan was discussed in detail with the student and the patient. CK Collected: 10:57 AM Status: UNK Source: [facility] TYPE CODE TESTS RESULT OUT OF RANGE REFERENCE UNITS LAB [id number] CREATINE KINASE (U/L) IN SER/PLAS 438.0 High 30.0-223.0 U/L Performed By: #### [id number] ### # [facility] [address] [place] [address] LAB Observed: 03/06/2024 10:40 AM Status: COMPLETED Source: [facility] [id number] Manuela Graham 08/1965 M Date Provider Department Center 03/06/2024 [id number] MP LAB RESOURCE MP DRAW Medical Pavi Family History Problem Relation Age of Onset Cancer Mother Heart disease Father Hypertension Father Cancer Mother's Brother Family Status - Relation Status Age at Mother Father Mother's Brother FOLLOW-UP Observed: 03/06/2024 10:00 AM Status: COMPLETED Source: [facility] [id number] Mcdonough 08/1965 M Date Provider Department Center 03/06/2024 472-[facility] MP PHYS MED Medical [facility] Family History Problem Relation Age of Onset Cancer Mother Heart disease Father Hypertension Father Cancer Mother's Brother Family Status - Relation Status Age at Mother Father Mother's Brother Level of Service:10567 DC OFFICE/OUTPATIENT ESTABLISHED MOD MDM 30 MIN () Reason for Visit and Comments: Follow-up [[id number]] PROGRESS Observed: 03/06/2024 10:00 AM Status: COMPLETED Source: [facility] Attestation signed by Nicole Muhammad MD at 03/06/2024 12:47 PM GC: I saw this patient and was physically present for the critical/ohara portions that determines the level of service. I was directly involved in the management and treatment plan of the patient. I reviewed the resident's note and agree with the resident's documentation. Please note there may be additional personal documentation from me, which may include corrections and/or changes to the residents note and plan. Patient has persistent distal greater than proximal weakness, with evidence of neuropathy on EMG nerve conduction study, but with persisting concerns for distal myopathy like inclusion body myositis based on his symptoms and the elevated CPK levels. We will order repeat CPK, if it remains elevated, we would like him to move forward with the biopsy. If it is negative he can hold off for now and we can treat this as an exclusive peripheral neuropathy. We discussed prognosis briefly, and discussed our working diagnosis. He will call with any questions or concerns. I spent 30+ minutes of total time on the day of the visit. This time was spent preparing for the visit, obtaining and reviewing any outside history/data, taking a history, performing an exam/evaluation, counseling and educating the patient/family about the diagnosis and plan, performing medical decision making, referring to and communicating with other health care referrals, independently interpreting results and documenting in the EMR, and coordinating care. Please see the additional documentation in this note for specific details. Nicole Muhammad MD ASSESSMENT/PLAN: Manuela Pandey was seen today for follow-up. Diagnoses and all orders for this visit: Neuropathic pain (Primary) - CK; Future No ref. provider found Assessment: 58-year-old male with severe upper greater than lower extremity atrophy and weakness. MRI cervical spine w and wo contrast was obtained at last visit which showed degenerative findings but not explain his symptoms. We discussed today that we suspect his symptoms are related to peripheral neuropathy vs myopathy. Muscle biopsy is pending. Plan: - repeat CPK testing ordered today, if normal, then could consider foregoing muscle biopsy as this would further suggest his symptoms are less likely a myopathic disease and more likely peripheral neuropathy of unknown etiology - Discussed some possible etiologies for peripheral neuropathy and their natural disease courses. - follow up as needed Risks, and benefits to any new medications were discussed with patient. All questions answered to patient's satisfaction. The patient was instructed to call if symptoms are worsening or not improving. The patient was counseled regarding impressions, instructions for management and importance of compliance with treatment. Franko Rodriguez MD SUBJECTIVE: Manuela Graham is a 58 y.o. male who presents to [facility] today for follow up of weakness. HPI: He has progressively worsening weakness primarily in his hands that has been ongoing for 4-5 years. Symptoms started in his left hand and are now in both. There is significant atrophy of his hands. He has no neck pain. He has undergone left cubital tunnel release on 11/12/22 and right carpal tunnel and right cubital tunnel release on 03/18/2023. After procedures, he initially experienced minor relief of symptoms however over time he continued to have worsening strength and dexterity. 02/14/2024 MR cervical spine with and without contrast shows degenerative disc disease at multiple levels but no evidence of cord pathology. Total CK obtained 01/04/2024 was elevated at 322.0 U/L. He denies family history of similar symptoms. At last visit on 01/04/2024, the above noted imaging was obtained. He additionally has been evaluated by Dr. Wilson for consideration of a muscle biopsy which is planned to be scheduled. He reports his symptoms being about the same aside from noticing more weakness in his legs. He has had several near falls but has not fallen. He feels like his feet sometimes drag and his toes hit the ground. Review of Systems ROS negative or per HPI Patient Active Problem List Diagnosis Cubital tunnel syndrome on left HTN (hypertension) Mild asthma Carpal tunnel syndrome of right wrist Outpatient Medications Prior to Visit Medication Sig Dispense Refill albuterol 90 mcg/actuation inhaler amLODIPine (Norvasc) 10 mg tablet Take 10 mg by mouth in the morning. choline fenofibrate (Trilipix) [address] capsule Take 135 mg by mouth in the morning. fenofibrate micronized (Antara) 130 mg capsule losartan (Cozaar) 100 mg tablet Take 100 mg by mouth in the morning. sildenafil (Viagra) 100 mg tablet Take 100 mg by mouth if needed. verapamil HCl (verapamil, bulk,) 100 % powder Compound RX; 15% transdermal Gel apply bid No facility-administered medications prior to visit. Allergies Allergen Reactions Penicillins Hives FACIAL SWELLING WHEN A CHILD JURNJACINTAN STUNG BY A WASP AT THE SAME TIME OBJECTIVE: Vitals: 03/06/24 0959 BP: 129/68 Pulse: 93 Weight: 67.6 kg (149 lb) Height: 1.829 m (6') Body mass index is 20.21 kg/m???. 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 There are diffuse and advanced disc degenerative changes in the cervical and upper thoracic spine. There is a heterogeneous marrow signal from degenerative arthritis. No acute bony pathology is seen. There is some heterogeneous enhancement in the mid and lower cervical vertebrae. Appearance is from degenerative arthritis. There is a small lesion in the T1 vertebral body which is likely to be a atypical hemangioma. No acute bony pathology seen. At C2-C3, there is no evidence of disc herniation, spinal stenosis or narrowing of the neural foramina. At C3-C4, there is no evidence of disc herniation, spinal stenosis or narrowing of the neural foramina. At C4-C5, C5-C6 and C6-C7, there are disc degenerative changes with various degrees of spinal stenosis or narrowing of the neural foramina. At C7-T1, there is a minimal disc bulge. No evidence of spinal stenosis or narrowing of the neural foramina. No signal abnormality seen within the substance of the spinal cord to suggest cord edema or myelomalacia. No evidence of abnormal enhancing pathology is seen in the spinal canal or within the substance of the spinal cord. Procedures: None performed today. Pending muscle biopsy with Dr. Wilson This note was completed using a voice nursing agency manager system. Every effort was made to ensure accuracy; however, inadvertent computerized nursing agency manager errors may be present, please contact MD if any information is unclear. 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 It was hard to write his name Hard to grab and hold on to things Then it went to the right hand It seemed to start maybe 4-5 years ago He didn't notice that much in his legs - but when he had the EMG that did show changes in his legs too He says he might notice some difference in walking around - hasn't fallen or anything He had two MRI scans Two EMGs He thinks both MRI scans were of his neck He isn't sure if his hands are getting worse - he says it is hard to imagine that they could get much worse It is hard to button shirts etc Coordination and weakness are both difficult No clear weakness in the mouth or tongue ROS: As above Past Medical History: Diagnosis Date Arthritis Hyperlipidemia Hypertension Spontaneous pneumothorax Past Surgical History: Procedure Laterality Date CARPAL TUNNEL RELEASE Left ELBOW SURGERY Left 11/12/2022 LUNG SURGERY 07/2021 ROTATOR CUFF REPAIR Left VASECTOMY Current Outpatient Medications on File Prior to Visit Medication Sig Dispense Refill albuterol 90 mcg/actuation inhaler amLODIPine (Norvasc) 10 mg tablet Take 10 mg by mouth in the morning. choline fenofibrate (Trilipix) [address] capsule Take 135 mg by mouth in the morning. fenofibrate micronized (Antara) 130 mg capsule losartan (Cozaar) 100 mg tablet Take 100 mg by mouth in the morning. sildenafil (Viagra) 100 mg tablet Take 100 mg by mouth if needed. verapamil HCl (verapamil, bulk,) 100 % powder Compound RX; 15% transdermal Gel apply bid No current facility-administered medications on file prior to visit. Allergies Allergen Reactions Penicillins Hives FACIAL SWELLING WHEN A CHILD PBC,RNBSN STUNG BY A WASP AT THE SAME TIME Exam; BP 147/78 (BP Location: Right arm, Patient Position: Sitting, BP Cuff Size: Adult) Pulse 79 Ht 1.829 m (6') Wt 67.7 kg (149 lb 3.2 oz) SpO2 98% BMI 20.24 kg/m??? Age appropriate No family present NC/AT Well developed, well nourished Mood/affect normal Awake, alert, oriented CN intact Speech intact Cognition intact Has wasting of both the thenar and hypothenar emminences - worse ont eh left Has DF weakness L worse than right No fasciculations Sensory intact Ambulatory Station intact Coordination intact Reflexes: - 3+ reflexes in bilateral patella, 1 + bilateral bicep Review of films; I personally reviewed and interpreted his films for him There is some spondylosis and stenosis in the mid to lower c-spine c4-6 there is no clear cord signal change The diameter of the spinal canal is about 8-9 mm A/P: 58 y/o male - with progressive muscle weakness and atrophy - arms > leg and L>R - referred for potential muscle biopsy. L side calf muscle biopsy Recheck cpk - was listed in Dr. Muhammad's note (do with pre-op labs) Referral to Dr. Yoon for ? Of hemmrhoids versus rectal mass on digital rectal exam by his PCP Manuel Wilson MD Answers submitted by the patient for this visit: Neurological Problem Questionnaire (Submitted on 02/27/2024) Chief Complaint: Neurologic complaint clumsiness: Yes altered mental status: No syncope: No loss of balance: No focal sensory loss: No memory loss: No near-syncope: No slurred speech: No visual change: No weakness: No focal weakness: Yes Chronicity: chronic Onset: more than 1 year ago Onset quality: gradually Progression since onset: gradually worsening Focality: lower extremity, upper extremity abdominal pain: No aura: No back pain: No bladder incontinence: No bowel incontinence: No chest pain: No confusion: No dizziness: No fatigue: No vertigo: No fever: No headaches: No auditory change: No light-headedness: No nausea: No neck pain: No palpitations: No shortness of breath: No diaphoresis: No vomiting: No Treatments tried: acetaminophen Improvement on treatment: mild OFFICE VISIT Observed: 03/01/2024 10:00 AM Status: COMPLETED Source: [facility] [id number] SantosDannie orellanaManuela 08/1965 Provider Department Center 03/01/2024 MANUEL PICKARD D[facility] ONC DCC Family History Problem Relation Age of Onset Cancer Mother Heart disease Father Hypertension Father Cancer Mother's Brother Family Status - Relation Status Age at Mother Father Mother's Brother Level of Service:58421 DC OFFICE/OUTPATIENT NEW MODERATE MDM 45 MINUTES Reason for Visit and Comments: Consult [484] - Here today for possible muscle BX PREP FOR PROCEDURE Observed: 03/01/2024 12:00 AM Status: COMPLETED Source: [facility] [id number] SantosDannie orellanaManuela M 08/1965 Provider Department Center 03/01/2024 MANUEL PICKARD NEUROLOGY None Family History Problem Relation Age of Onset Cancer Mother Heart disease Father Hypertension Father Cancer Mother's Brother Family Status - Relation Status Age at Mother Father Mother's Brother MR CERVICAL SPINE W AND WO CONTRAST Observed: 02/14/2024 2:19 PM Status: UNK Source: [facility] Order Comment: Recommended b y radiologist to assess lesion compressing thecal sac HISTORY: A 58-year-old male with the history of the neck pain. Abnormal precontrast MRI examination of the cervical spine. TECHNIQUE: Multiplanar and multisequence MRI examination of the cervical spine is performed without and with intravenous contrast administration. COMPARISON: Comparison is made with MRI examination of the cervical spine without contrast of 01/26/2024. FINDINGS: Vertebral heights are normal. There are diffuse and advanced disc degenerative changes in the cervical and upper thoracic spine. There is a heterogeneous marrow signal from degenerative arthritis. No acute bony pathology is seen. There is some heterogeneous enhancement in the mid and lower cervical vertebrae. Appearance is from degenerative arthritis. There is a small lesion in the T1 vertebral body which is likely to be a atypical hemangioma. No acute bony pathology seen. At C2-C3, there is no evidence of disc herniation, spinal stenosis or narrowing of the neural foramina. At C3-C4, there is no evidence of disc herniation, spinal stenosis or narrowing of the neural foramina. At C4-C5, C5-C6 and C6-C7, there are disc degenerative changes with various degrees of spinal stenosis or narrowing of the neural foramina. At C7-T1, there is a minimal disc bulge. No evidence of spinal stenosis or narrowing of the neural foramina. No signal abnormality seen within the substance of the spinal cord to suggest cord edema or myelomalacia. No evidence of abnormal enhancing pathology is seen in the spinal canal or within the substance of the spinal cord. IMPRESSION: *Severe disc degenerative disease in the cervical and upper thoracic spine. *There is a probable atypical hemangioma in the T1 vertebral body. No evidence of malignancy or metastasis. *Various degrees of spinal stenosis or narrowing of the neural foramina as described about. *No evidence of cord edema, contusion or abnormal enhancing pathology in the spinal canal. Electronically signed: Ian Schroeder. Not Vldtd ORDERS ONLY Observed: 01/27/2024 12:00 AM Status: COMPLETED Source: [facility] [id number] Manuela Graham Nathaniel 08/1965 M Date Provider Department Center 01/27/2024 [address] EU[address] YE[address]Z [facility] Family History Problem Relation Age of Onset Cancer Mother Heart disease Father Family Status - Relation Status Age at Mother Father PROGRESS Observed: 01/26/2024 3:45 PM Status: COMPLETED Source: [facility] Spoke with patient about MRI with contrast and he will schedule once radiology reaches out. MR CERVICAL SPINE WO CONTRAST Observed: 01/26/2024 3:26 PM Status: UNK Source: [facility] Order Comment: Cervical sten osis MR CERVICAL SPINE WO CONTRAS T 01/26/2024 3:30 PM INDICATION: Neuropathic pain COMPARISON: None TECHNIQUE: Multiplanar multisequence MR images of the cervical spine without contrast were obtained. FINDINGS: NUMBERING/ALIGNMENT: There are 7 cervical type vertebrae. There is approximately 2 mm retrolisthesis of C3 on C4, C4 on C5, C5 on C6, and C6 on C7. Approximately 2 mm of anterolisthesis of C7 on T1. Facet alignment is grossly appropriate. Vertebral body heights are well-maintained. BONE MARROW: Bone marrow signal is heterogeneous throughout. There are degenerative endplate changes, some small cystic areas. Indeterminate focal STIR bright T2 dark lesion of the T1 vertebral body posterior centrally. Focal STIR bright lesion of the C5 vertebrae with intermediate T1 signal, possibly degenerative in nature or hemangioma, technically indeterminate. SPINAL CORD: Spinal cord signal and morphology is normal. Mild anterior T2 bright epidural material along the thecal sac, which contributes to mild thecal sac effacement. HEAD: Moderate burden is sinus mucosal thickening with suggestion of some polypoid lesions within the maxillary sinus. SOFT TISSUES: Questionable tiny areas of prevertebral edema versus artifact of the C4 and C5 levels. T2 bright areas of the palatine tonsils, possibly mucus retention cysts. Prominent left greater than right level 2 lymph nodes. DEGENERATIVE FINDINGS: Moderate severe degenerative disc disease throughout. Craniocervical junction: Normal alignment at the craniocervical junction without narrowing at the foramen magnum and at C1-C2. Moderate degenerative changes of the dens. C2-C3: No disc osteophyte complex eccentric to the left and mild facet degeneration. There is minimal neural foraminal narrowing. C3-C4: Mild disc osteophyte complex and uncovertebral joint hypertrophy. There is mild facet degeneration. There is minimal ligamentum flavum hypertrophy. There is minimal lateral neural foraminal narrowing. C4-C5: Mild to moderate disc osteophyte complex and uncovertebral joint hypertrophy. There is mild facet degeneration. There is mild ligamentum flavum hypertrophy. There is mild to moderate spinal canal stenosis. There is moderate bilateral neural foraminal narrowing. C5-C6: Moderate disc osteophyte complex and uncovertebral joint hypertrophy. There is mild facet degeneration. There is moderate ligament flavum hypertrophy. There is moderate spinal canal stenosis. There is moderate right and moderate severe left neural foraminal narrowing. C6-C7: Mild to moderate disc osteophyte complex and uncovertebral joint hypertrophy. There is mild ligament flavum hypertrophy. There is mild facet degeneration. There is mild to moderate spinal canal stenosis. There is mild bilateral neural foraminal narrowing. C7-T1: Mild disc osteophyte complex and moderate right greater than left facet degeneration. There is mild bilateral neural foraminal narrowing. IMPRESSION: 1.Multilevel degenerative changes of the cervical spine as described, most prominent at C5-C6 where there is moderate spinal canal stenosis and moderate severe left neural foraminal narrowing. 2.Mild anterior T2 bright epidural material along the thecal sac, which contributes to thecal sac effacement, possibly due to prominent epidural venous plexus although not definite without contrast. Further evaluation with short-term follow-up cervical spine MRI with and without contrast recommended. 3.Indeterminate focal lesions of the T1 and C5 vertebral bodies as described. Attention on follow-up contrast-enhanced exam recommended. 4.T2 bright areas of the palatine tonsils, possibly mucus retention cysts and prominent left greater than right level 2 lymph nodes. Attention on follow-up recommended. Electronically signed: Castro Fernández MD. Not Vldtd 36 Observed: 01/06/2024 10:38 AM Status: COMPLETED Source: [facility] Spoke to patient he will try the steroid and is ok with doing a biopsy, he was given Dr. Wilson's contact information. I instructed him to call one week after he completes the steroid medication to let MD know how he is doing. 36 Observed: 01/06/2024 10:28 AM Status: COMPLETED Source: [facility] LVM to contact office at his convenience. 36 Observed: 01/06/2024 10:28 AM Status: COMPLETED Source: [facility] ----- Message from Nicole Muhammad MD sent at 01/05/2024 7:37 AM EDT ----- Please let patient know the muscle enzyme was still elevated. I am going to recommend a muscle biopsy of the calf muscles if he is agreeable. I would like to also try a steroid for 1 week to see if this improves his symptoms, as many myopathic conditions respond to steroid. If he is agreeable, let me know. ----- Message ----- From: Lab, Background User Sent: 01/04/2024 2:51 PM EDT To: Nicole Muhammad MD ORDERS ONLY Observed: 01/06/2024 12:00 AM Status: COMPLETED Source: [facility] [id number] Manuela Graham 08/1965 Date Provider Department Center 01/06/2024 472-[facility] PHYS MED Medical [facility] Family History Problem Relation Age of Onset Cancer Mother Heart disease Father Family Status - Relation Status Age at Mother Father LAB Observed: 01/04/2024 2:05 PM Status: COMPLETED Source: [facility] [id number] Manuela Graham 08/1965 Date Provider Department Center 01/04/2024 [id number] MP LAB RESOURCE DRAW Medical Pavi Family History Problem Relation Age of Onset Cancer Mother Heart disease Father Family Status - Relation Status Age at Mother Father CK Collected: 2:01 PM Status: UNK Source: [facility] TYPE CODE TESTS RESULT OUT OF RANGE REFERENCE UNITS LAB [id number] CREATINE KINASE (U/L) IN SER/PLAS 322.0 High 30.0-223.0 U/L Performed By: #### LAB62 ### # [facility] ([facility]) [address] [place] [address] PROGRESS Observed: 01/04/2024 1:15 PM Status: COMPLETED Source: [facility] ASSESSMENT/PLAN: Manuela was seen today for follow-up. Diagnoses and all orders for this visit: Neuropathic pain (Primary) - MR cervical spine wo contrast; Future - CK; Future No ref. provider found Assessment: Severe upper greater than lower extremity atrophy and weakness, likely related to peripheral neuropathy versus myopathy versus less likely cervical radiculopathy or myelopathy. Plan: Lab results were negative other than an elevated CPK level, which may be related to his recent EMG/needle study. We recommend repeat CPK, and if negative I suspect this patient is suffering from a peripheral neuropathy either inherited or autoimmune in nature. We could consider a steroid burst. If the CPK is elevated we will likely pursue muscle biopsy to rule out distal myopathies including inclusion body myositis. Motor neuron disease is less likely as there are no upper motor neuron signs, and there is no significant spontaneous activity seen with the needle study. Cervical myelopathy versus radiculopathy also in the differential given the bilateral nature to the weakness, we will order an MRI to rule this out. I spent 35+ minutes of total time on the day of the visit. This time was spent preparing for the visit, obtaining and reviewing any outside history/data, taking a history, performing an exam/evaluation, counseling and educating the patient/family about the diagnosis and plan, performing medical decision making, referring to and communicating with other health care referrals, independently interpreting results and documenting in the EMR, and coordinating care. Please see the additional documentation in this note for specific details. Risks, and benefits to any new medications were discussed with patient. All questions answered to patient's satisfaction. The patient was instructed to call if symptoms are worsening or not improving. The patient was counseled regarding impressions, instructions for management and importance of compliance with treatment. Nicole Muhammad MD SUBJECTIVE: Manuela Graham is a 58 y.o. male who presents to [facility] today for weakness HPI: This patient has progressively worsening weakness which he noticed a few years ago. Started in the left hand and now is back in his right hand. Although he reports no symptoms in the lower extremities, he does have significant muscle atrophy there. He reports no falls, no bowel or bladder dysfunction, no dysphagia no visual deficits and no significant sensory deficits. At this time he continues to have progressively worsening weakness, difficulty with walking and manipulation/dexterity of the upper limbs. No significant pain. Lab test were done and were negative other than an elevated CPK level. Review of Systems Denies fevers chills chest pain shortness of breath nausea vomiting or diarrhea. He he denies overall muscle fatigue, denies visual deficits difficulty swallowing skin changes mouth sores and denies a family history of any neurological disorders Patient Active Problem List Diagnosis Cubital tunnel syndrome on left HTN (hypertension) Mild asthma Carpal tunnel syndrome of right wrist Outpatient Medications Prior to Visit Medication Sig Dispense Refill albuterol 90 mcg/actuation inhaler amLODIPine (Norvasc) 10 mg tablet Take 10 mg by mouth in the morning. choline fenofibrate (Trilipix) [address] capsule Take 135 mg by mouth in the morning. fenofibrate micronized (Antara) 130 mg capsule losartan (Cozaar) 100 mg tablet Take 100 mg by mouth in the morning. sildenafil (Viagra) 100 mg tablet Take 100 mg by mouth if needed. verapamil HCl (verapamil, bulk,) 100 % powder Compound RX; 15% transdermal Gel apply bid No facility-administered medications prior to visit. Allergies Allergen Reactions Penicillins Hives FACIAL SWELLING WHEN A CHILD DANDY DODD STUNG BY A WASP AT THE SAME TIME OBJECTIVE: Vitals: 01/04/24 1311 BP: 123/75 Pulse: 88 Weight: 66.7 kg (147 lb) Height: 1.829 m (6') Body mass index is 19.94 kg/m???. Physical Exam: General: No acute distress, conversant HEENT: Normocephalic nontraumatic, no lid lag, MMM Cardiac: Limbs warm to touch Lungs: Normal rate, no respiratory distress Extremity: Lower extremity atrophy, no edema Psychiatric: Normal mood and affect Neurological: Alert and oriented, sensation appears to be intact, patient was able to ambulate successfully without unsteadiness. He has severe atrophy of the distal greater than proximal upper and lower extremities. 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 Special testing: Milad sign was negative Studies Reviewed: CPK level was elevated, all other lab tests were reviewed from [place] and were negative. Procedures: None, considering muscle biopsy, discussed this briefly. This note was completed using a voice nursing agency manager system. Every effort was made to ensure accuracy; however, inadvertent computerized nursing agency manager errors may be present, please contact MD if any information is unclear. FOLLOW-UP Observed: 01/04/2024 1:15 PM Status: COMPLETED Source: [facility] [id number] Manuela Graham 08/1965 Date Provider Department Center 01/04/2024 NICOLE RAMIREZ MP [facility] Family History Problem Relation Age of Onset Cancer Mother Heart disease Father Family Status - Relation Status Age at Mother Father Level of Service:44150 DC OFFICE/OUTPATIENT ESTABLISHED MOD MDM 30 MIN Reason for Visit and Comments: Follow-up [178128] 36 Observed: 11/23/2023 4:04 PM Status: COMPLETED Source: [facility] Patient returns call no new symptoms, understands to repeat labs in 3-4 weeks. Order sent to patient as requested. 36 Observed: 11/23/2023 3:24 PM Status: COMPLETED Source: [facility] Lab calls with Critical lab result of 432. Dr Muhamamd notified. Per Dr Muhammad It is likely elevated secondary to the recent EMG test which can falsely elevate it. As long as he has no new symptoms (worsening pain since we saw him or chest pain) then we will just re-check it in 3-4 weeks. Phone message to patient to discuss TELEPHONE Observed: 11/23/2023 12:00 AM Status: COMPLETED Source: [facility] [id number] Manuela Graham 08/1965 M Date Provider Department Center 11/23/[address] [facility] Family History Problem Relation Age of Onset Cancer Mother Heart disease Father Family Status - Relation Status Age at Mother Father Reason for Visit and Comments: Critical Lab result [Other] PROGRESS Observed: 11/22/2023 1:45 PM Status: COMPLETED Source: [facility] Attestation signed by Nicole Muhammad MD at 11/23/2023 8:42 AM Procedure Attestation: I was present for the entire procedure, or at minimum was present for ohara and critical portions and I was otherwise immediately available to assist. Please note there may be an additional personal documentation from me, which may include corrections and/or changes to the residents note and plan. EMG Final Impression: A complete EMG nerve conduction study was performed of the left upper and left lower extremity. We did additionally test the right sural and although it was not recorded due to technical issues with the machine, we retested the right ulnar motor which showed findings consistent with the previous right upper extremity study. There was clear evidence of a severe peripheral neuropathy seen on today's study affecting all 4 limbs. This neuropathy appear to be more demyelinating in nature and there was significantly low conduction velocities. Differential diagnosis for a demyelinating predominant peripheral neuropathy would include Xwuqjlz-Qjctn-Qfrki or CIDP, however other potential causes could be considered including alcohol (patient did report 4 drinks per day), metabolic dysfunction, and multifocal motor neuropathy. Motor neuron disease is less likely given there was no upper motor neuron signs, and sensory appear to be affected. Thoracic paraspinals were also within normal limits and there was spontaneous findings seen only 1 muscle tested. For this reason we recommend workup of reversible causes of neuropathy, and these labs were ordered today. Also consider cervical and lumbar MRI to rule out spinal etiologies, although I think this is less likely given the patient does not have pain and the findings would be consistent with a polyradiculopathy at multiple levels. Consider neurology referral ASSESSMENT/PLAN: Manuela was seen today for emg. Diagnoses and all orders for this visit: Neuropathy - EMG Pain in left hand - EMG EMG Impression: Please see above attestation for complete impression Today's findings are most consistent with a severe peripheral neuropathy that is more demyelinating in nature Motor appears to be more affected than sensory, however clear evidence of sensory involvement Plan: - Return to Mir Garcia MD Brock Deangelo, MD Seen with medical student SUBJECTIVE: Manuela Graham is a 58 y.o. male who presents to [facility] today for bilateral UE and LLE EMG/NCS HPI: Patient is a 58 y.o. male who is followed by orthopedics for a 3-4 year history of progressive bilateral hand weakness, muscle atrophy, and loss of dexterity. He underwent left cubital tunnel release on 11/12/22, right carpal tunnel and right cubital tunnel release on 03/18/2023. After procedures, he initially experienced minor relief of symptoms however over time he continued to have worsening strength, dexterity as well as a new onset bilateral hand tingling that is worse on the left. He continues to deny pain symptoms as well as any LE symptoms. Review of Systems Denies fevers, chills, nausea Patient Active Problem List Diagnosis Cubital tunnel syndrome on left HTN (hypertension) Mild asthma Carpal tunnel syndrome of right wrist Outpatient Medications Prior to Visit Medication Sig Dispense Refill albuterol 90 mcg/actuation inhaler amLODIPine (Norvasc) 10 mg tablet Take 10 mg by mouth in the morning. choline fenofibrate (Trilipix) [address] capsule Take 135 mg by mouth in the morning. fenofibrate micronized (Antara) 130 mg capsule losartan (Cozaar) 100 mg tablet Take 100 mg by mouth in the morning. sildenafil (Viagra) 100 mg tablet Take 100 mg by mouth if needed. verapamil HCl (verapamil, bulk,) 100 % powder Compound RX; 15% transdermal Gel apply bid No facility-administered medications prior to visit. Allergies Allergen Reactions Penicillins Hives FACIAL SWELLING WHEN A CHILD DANDY DODD STUNG BY A WASP AT THE SAME TIME OBJECTIVE: Vitals: 11/22/23 1326 BP: 109/65 Pulse: 88 Weight: 66.7 kg (147 lb) Height: 1.829 m (6') Body mass index is 19.94 kg/m???. Physical Exam: General: Pleasant, sitting comfortably in the room in no acute distress HEENT: No obvious deformities CVS: Extremities well perfused, no peripheral cyanosis in exposed areas Lung: Normal effort of breathing, no accessory muscle usage Psyche: Mood and affect appropriate and normal Skin: There is no petechiae, purpura noted. Skin is also warm and dry to touch. No erythema, infection, or wound at EMG/NCS sites Neurologically: Alert, oriented, followed commands. Negative Hoffmans, reflexes 2+ patellar Musculoskeletal exam: Moves all extremities spontaneously. 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 Relevant documents were present and verified. Site/side verified. Patient identity confirmed verbally with patient. This timeout verifies correct patient, procedure, equipment, support architect and site/side were marked as required. Verbal consent was obtained, and consent given by patient. Risks of the procedure and alternatives discussed as below and include bleeding, infection and pain. Pneumothorax is an additional risk for needle studies near the lung area. Patient was agreeable to proceed with testing. Please see the scanned copy of the EMG report in the chart for additional details regarding the findings on today's electrodiagnostic study. Right Sural: Absent Left Peroneal motor: Prolonged onset latency and very low amplitude Left Tibial motor: Prolonged onset latency and very low amplitude Left Sural: Absent Left Median: Sensory median demonstrated prolonged peak latency with reduced amplitude (technical issue, computer did not record) Motor median demonstrated prolonged onset latency and very low amplitude Left Ulnar: Sensory median demonstrated prolonged peak latency with reduced amplitude (technical issue, computer did not record) Motor median demonstrated prolonged onset latency and low amplitude Right Ulnar: Motor ulnar demonstrated very prolonged onset latency and very low amplitude (technical issue, computer did not record) Needle findings: Left biceps brachii, left triceps brachii, left pronator teres, left first dorsal interosseous, left vastus medialis, left peroneus longus all with increased amplitude, duration, and reduced recruitment. Left gastrocnemius also with increased amplitude, duration, and reduced recruitment but with CRD as well. Also, left abductor pollicis brevis was found to have increased amplitude, increased duration, reduced recruitment, and positive sharp waves There is no other evidence of radiculopathy, plexopathy, or entrapment neuropathy. See above for Impression This note was completed using a voice nursing agency manager system. Every effort was made to ensure accuracy; however, inadvertent computerized nursing agency manager errors may be present, please contact MD if any information is unclear. PROCEDURE VISIT Observed: 11/22/2023 1:45 PM Status: COMPLETED Source: [facility] [id number] Manuela Graham 08/1965 M Date Provider Department Center 11/22/[address] [facility] Family History Problem Relation Age of Onset Cancer Mother Heart disease Father Family Status - Relation Status Age at Mother Father Level of Service:25253 DC OFFICE/OUTPT VISIT,PROCEDURE ONLY Reason for Visit and Comments: EMG [Other] - BLE/ BUE PROGRESS Observed: 10/12/2023 10:30 AM Status: COMPLETED Source: [facility] Orthopedic Surgery Subjective 10/12/23 Manuela Graham is a 58 yo male presenting with bilateral hand weakness, muscle wasting and loss of dexterity. He underwent right carpal and cubital tunnel release on 03/18/2023 and underwent left cubital tunnel release on 11/12/[address] Garcia. Since the procedures, he reports worsening strength, muscle wasting, and loss of dexterity on both sides but the right side is progressing more rapidly. He denies any pain either before or after surgery and states his only concern is the loss of hand strength. He denies any tongue fasciculations or any other muscle weakness. EMG results from 01/26/23: Right upper extremity severe ulnar neuropathy, likely at or near the elbow* Right upper extremity carpal tunnel syndrome* Suspected motor and sensory peripheral neuropathy 03/18/2023 Release, Carpal Tunnel - Right and Release, Cubital Tunnel - Right 03/30/23 Patient has surgery as noted above and is doing well. Denies significant pain. Continues to endorse symptoms of left upper extremity cubital tunnel Patient History Past Surgical History: Procedure Laterality Date CARPAL TUNNEL RELEASE Left ELBOW SURGERY Left 11/12/2022 ROTATOR CUFF REPAIR Left VASECTOMY Past Medical History: Diagnosis Date Arthritis Hyperlipidemia Hypertension Spontaneous pneumothorax Objective Exam: - Incisions are clean, dry, and intact. No drainage or erythema appreciated. 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 I was physically present with the medical student. I have personally performed (or re-performed) the physical exam and medical decision making for the patient. I personally verified the medical student's documentation. I made pertinent changes as necessary to ensure accurate documentation. Additional Notes/Findings: He still has significant wasting of the interosseous muscles in his hand. His sensation seems to be improving. I think at this point it would be worth repeating an EMG and make sure were not missing another underlying problem. He has no clinical evidence of ALS or CMT. We will see him back after the EMGs. FOLLOW-UP Observed: 10/12/2023 10:30 AM Status: COMPLETED Source: [facility] [id number] Manuela Graham 08/1965 Date Provider Department Center 10/12/2023 438-MIR GARCIA MP ORTHO MPORTHO Family History Problem Relation Age of Onset Cancer Mother Heart disease Father Family Status - Relation Status Age at Mother Father Level of Service:10219 DC OFFICE/OUTPATIENT ESTABLISHED LOW [facility] 20 MIN Reason for Visit and Comments: Follow-up [773357] - Bilateral hands CTS Pain [136] - Bilateral hands CTS ALLERGIES DATE TYPE / CODE NAME / CODE REACTION SEVERITY SOURCE 08/11/2022 Drug Class/434641301(SNO MED CT) PENICILLINS Ellees [facility] ENCOUNTERS ADMIT/DISCHARGE ACCOUNT NUMBER ADMITTING ENCOUNTER CLASS LOCATION SOURCE 08/16/2024/08/17/19 [id number] Ambulatory Building:CI [id number] [facility] EPIC 07/17/2024/07/18/19 [id number] Ambulatory Building:FB ORTHO [facility] EPIC 07/17/2024/07/18/19 25 [id number] Ambulatory Building:FB ORTHO [facility] EPIC 06/21/2024/06/22/19 [id number] Ambulatory Building:[facility] 06/12/2024/06/13/19 [id number] Ambulatory Building:[facility] 05/30/2024/05/30/19 [id number] MANUEL WILSON Ambulatory Building:OR Room: ORBed: 361 [facility] 05/25/2024 [id number] Ambulatory Building:[facility] OPD [facility] 05/25/2024/05/25/19 [id number] Ambulatory Building:HR T [facility] 05/25/2024/05/25/19 [id number] Ambulatory Building:[facility] XRAY [facility] 05/25/2024/05/25/19 [id number] Ambulatory Building:[facility] SURG [facility] 05/02/2024/05/02/19 [id number] YUE YOON Ambulatory BuildinC Room: GISC OR POOLBed: 2537 [facility] 04/13/2024/04/13/19 [id number] Ambulatory Building: ORTHO [facility] Medical [facility] 03/17/2024/03/17/20 24 [id number] Ambulatory Building:[facility] 03/06/2024 [id number] Ambulatory Building:MP DRAW [facility] 03/06/2024 [id number] Ambulatory Building:PM MR [facility] 03/01/2024/03/01/20 24 [id number] Ambulatory Building:CI [id number] [facility] 03/01/2024 [id number] Ambulatory Buildin 70 [facility] 02/24/2024/02/24/20 24 [id number] Ambulatory Building:CI [id number] [facility] 02/14/2024/02/14/20 24 [id number] Ambulatory Buildin [id number] [facility] 01/26/2024/01/26/20 24 [id number] Ambulatory Building:[facility] MR IMAGING [facility] 01/04/2024 [id number] Ambulatory Building:MP DRAW [facility] 01/04/2024 [id number] Ambulatory Building:PM MR [facility] 11/23/2023/11/23/19 24 [id number] Ambulatory Building:CI ORTHO [facility] 11/22/2023 [id number] Ambulatory Building:PM MR [facility] 11/08/2023/11/08/19 24 [id number] Ambulatory Building:FB ORTHO [facility] EPIC 11/08/2023/11/08/19 24 [id number] Ambulatory Building:FB ORTHO [facility] 10/12/2023 [id number] Ambulatory Buildin 90 [facility] 09/09/2023/09/09/19 24 [id number] Ambulatory Building:CI [address] [facility] EPIC PAYERS ENCOUNTER GUARANTOR PAYER SUBSCRIBER SOURCE 08/16/2024 MANUELA Armstrong [facility]GEEDOB[facility] [address] [place] [id number]: () Primary Insurance:MEDICAL MUTUALPolicy Number: [id number] e Date:2022-04-12 MANUELA Armstrong AGEEDOB: [id number] [address] [address] [facility] 07/17/2024 MANUELA Armstrong AGEEDOB: [id number] [place] [address]Tel: () Primary Insurance:MEDICAL MUTUALPolicy Number: [id number] e Date:2022-04-12 MANUELA Armstrong AGEEDOB: [id number] [address] [facility] EPIC 07/17/2024 MANUELA Armstrong AGEEDOB: [id number] [place] [id number]: (HP) Primary Insurance:MEDICAL MUTUALPolicy Number: [id number] e Date:2022-04-12 MANUELA Armstrong AGEEDOB: [id number] [place] [id number] [facility] 06/21/2024 Primary Insurance:MEDICAL MUTUALPolicy Number: [id number] e Date:2022-04-12 MANUELA Armstrong AGEEDOB: [id number] [place] [id number] [facility] 06/12/2024 Primary Insurance:MEDICAL MUTUALPolicy Number: [id number] e Date:2022-04-12 MANUELA Armstrong AGEEDOB: [id number] [place] [address] [facility] 05/30/2024 Primary Insurance:MEDICAL MUTUALPolicy Number: [id number] e Date:2022-04-12 MANUELA Armstrong AGEEDOB: [id number] [place] [address] [facility] 05/25/2024 Primary Insurance:MEDICAL MUTUALPolicy Number: [id number] e Date:2022-04-12 MANUELA Armstrong AGEEDOB: [id number] [place] [id number] [facility] 05/25/2024 Primary Insurance:MEDICAL MUTUALPolicy Number: [id number] e Date:2022-04-12 MANUELA Armstrong AGEEDOB: [id number] [place] [id number] [facility] 05/25/2024 Primary Insurance:MEDICAL MUTUALPolicy Number: [id number] e Date:2022-04-12 MANUELA Armstrong AGEEDOB: [id number] [place] [id number] [facility] 05/25/2024 Primary Insurance:MEDICAL MUTUALPolicy Number: [id number] e Date:2022-04-12 MANUELA Armstrong AGEEDOB: [id number] [place] [address] [facility] 05/02/2024 Primary Insurance:MEDICAL MUTUALPolicy Number: [id number] e Date:2022-04-12 MANUELA Armstrong AGEEDOB: [id number] [place] [address] [facility] 04/13/2024 MANUELA Armstrong AGEEDOB: [place] [address]Tel: () Primary Insurance:MEDICAL MUTUALPolicy Number: [id number] e Date:2022-04-12 MANUELA Armstrong AGEEDOB: [id number] [place] [address] [facility] 03/17/2024 Primary Insurance:MEDICAL MUTUALPolicy Number: [id number] e Date:2022-04-12 MANUELA Armstrong AGEEDOB: [id number] [place] [id number] [facility] 03/06/2024 Primary Insurance:MEDICAL MUTUALPolicy Number: [id number] e Date:2022-04-12 MANUELA Armstrong AGEEDOB: [id number] [address] [address] [facility] 03/06/2024 Primary Insurance:MEDICAL MUTUALPolicy Number: [id number] e Date:2022-04-12 MANUELA Armstrong AGEEDOB: [id number] [address] 03/01/2024 MANUELA Armstrong AGEEDOB: [id number] [place] [id number]: (HP) Primary Insurance:MEDICAL MUTUALPolicy Number: [id number] e Date:2022-04-12 MANUELA Armstrong AGEEDOB: [id number] [address] [facility] 03/01/2024 Primary Insurance:MEDICAL MUTUALPolicy Number: [id number] e Date:2022-04-12 MANUELA Armstrong AGEEDOB: [id number] [address] 02/24/2024 MANUELA Armstrong AGEEDOB: [id number] [place] [address]Tel: () Primary Insurance:MEDICAL MUTUALPolicy Number: [id number] e Date:2022-04-12 MANUELA Armstrong AGEEDOB: [id number] [place] [id number] [facility] 02/14/2024 Primary Insurance:MEDICAL MUTUALPolicy Number: [id number] e Date:2022-04-12 MANUELA Armstrong AGEEDOB: [id number] [place] [address] [facility] 01/26/2024 Primary Insurance:MEDICAL MUTUALPolicy Number: [id number] e Date:2022-04-12 MANUELA Armstrong AGEEDOB: [id number] [place] [address] [facility] 01/04/2024 Primary Insurance:MEDICAL MUTUALPolicy Number: [id number] e Date:2022-04-12 MANUELA Armstrong AGEEDOB: [id number] [address] 01/04/2024 Primary Insurance:MEDICAL MUTUALPolicy Number: [id number] e Date:2022-04-12 MANUELA Armstrong AGEEDOB: [id number] [address] 11/23/2023 MANUELA Armstrong AGEEDOB: [address]Tel: (HP) Primary Insurance:MEDICAL MUTUALPolicy Number: [id number] e Date:2022-04-12 MANUELA Armstrong AGEEDOB: [id number] [address] [facility] 11/22/2023 Primary Insurance:MEDICAL MUTUALPolicy Number: [id number] e Date:2022-04-12 MANUELA Armstrong AGEEDOB: [id number] [address] 11/08/2023 MANUELA Armstrong AGEEDOB: [address]Tel: (HP) Primary Insurance:MEDICAL MUTUALPolicy Number: [id number] e Date:2022-04-12 MANUELA Armstrong AGEEDOB: [id number] [place] [address] [facility] 11/08/2023 MANUELA Armstrong AGEEDOB: [address]Tel: (HP) Primary Insurance:MEDICAL MUTUALPolicy Number: [id number] e Date:2022-04-12 MANUELA Armstrong AGEEDOB: [id number] [address] [address] [facility] 10/12/2023 Primary Insurance:MEDICAL MUTUALPolicy Number: [id number] e Date:2022-04-12 MANUELA Armstrong AGEEDOB: [id number] [address] [address] [facility] 09/09/2023 MANUELA Armstrong AGEEDOB: [id number] [address] [address]Szq: () Primary Insurance:MEDICAL MUTUALPolicy Number: [id number] e Date:2022-04-12 MANUELA Armstrong AGEEDOB: [id number] [address] [address] [facility]
[2024-09-01 11:31] LABS: Creatine Kinase 402 U/L (39-308)
== END 2024-09-01 10:09 | disposition home or self-care (01) ==
LOC: LAB 10:09
PROVIDERS: PCP Family Medicine; Visit Provider Family Medicine
DX: R74.8 Abnormal levels of other serum enzymes (principal); M62.59 Muscle wasting and atrophy, not elsewhere classified, multiple sites; G70.9 Myoneural disorder, unspecified
CPT/HCPCS: 36415; 82550